=== PATIENT | male | born 1955 | race Caucasian/White ===

== ENCOUNTER 2019-08-15 05:49 | Day surgery (SDC) | payer BC, SELFPAY ==
[2019-07-18 10:13] VITALS: BMI 26.6
--- NOTE | 2019-08-14 23:25 | HP.PCM_ITS ---
History and Physical Date of Admission: 08/15/19 HISTORY OF PRESENT ILLNESS 64 year old man presents with an enlarging soft tissue mass nasal glabella near the left medial canthal area that has increased in size over the last several months. He denies any trauma. He denies any recent infection. He denies any visual problems. He also has questions about a vascular hemangioma on his left abdominal wall. He states it has not increased in size recently. He denies bleeding. He denies ulceration. He denies infection. He presents at this time for further evaluation and treatment. PAST MEDICAL HISTORY Negative. PAST SURGICAL HISTORY None. ALLERGIES No Known Allergies MEDICATIONS NK FAMILY HISTORY Unknown - No problems noted. SOCIAL HISTORY Smoking Status: Current every day smoker alcohol intake: current substance use type: does not use REVIEW OF SYSTEMS General - Denies fever, fatigue, and weight loss. Eyes - Denies cataracts and glaucoma. Denies visual problems. ENT - Denies nasal congestion and sore throat. Endocrine - Denies excessive thirst and urination. Skin - Denies skin cancer. Has an enlarging soft tissue mass nasal glabella near left medial canthal area. Has hemangioma left abdominal wall. Musculoskeletal - Denies joint pain, joint stiffness, weakness of muscles and joints, back pain, and arthritis. Neuro - Denies headaches. Cardiovascular - Denies chest pain, fatigue, and shortness of breath with exertion. Psych - Denies anxiety and depression. Respiratory - Denies chronic cough and shortness of breath. Patient is a smoker. Gastrointestinal - Denies nausea, vomiting, diarrhea, and constipation. Hematologic - Denies abnormal bruising and bleeding. Genitourinary - Denies hematuria and urinary frequency. PHYSICAL EXAMINATION General - Alert and Oriented. HEENT - PERRL. EOMI. Throat is clear. On the nasal glabella near the left medial canthal area is a soft tissue mass that measures 2 cm. It is mobile. Some adherence to the overlying skin is noted. No ulceration. Lesion is nontender. No evidence of infection. Neck - Supple and nontender. No cervical adenopathy. No suspicious lesions noted. Lungs - Clear to auscultation. Heart - Regular rate and rhythm. Abdomen - Soft and nondistended. On the left abdominal wall is a vascular hemangioma. It is raised in configuration. Measures 11 mm. No evidence of infection. No bleeding noted. No ulceration. Lesion is nontender. Extremities - FROM. No axillary adenopathy. Radial pulses are palpable. No suspicious lesions noted. Neuro - CN II-XII grossly intact. Psych - Normal mood and affect. ASSESSMENT 1. 2 cm soft tissue mass nasal glabella near left medial canthal area. 2. 11 mm hemangioma left abdominal wall. 3. Smoker. PLAN Recommend excision of this soft tissue mass nasal glabella near left medial canthal area and send it to Pathology for analysis to rule out carcinoma. Depending on how much skin needs to be removed will determine if a skin graft or skin flap is necessary for reconstruction. With adherence of the mass to the skin, if it is not removed and some of the mass persists, then it increases the risk of recurrence. The hemangioma is stable at present. Will observe at this time. If bleeding occurs, or increase in pain, or infection develops, or ulceration develops then would need excision at that time. Surgery will be done under local anesthesia and IV sedation on an outpatient basis. Patient was informed of the risks and complications of the procedure including alternatives to surgery. These were discussed with the patient personally. Patient voices understanding and wishes to proceed. Some of the risks and complications were included in a form from the [employer]. Encouraged patient to stop smoking as it may have deleterious effects on wound healing.
[2019-08-15 06:13] VITALS: BP 188/101; PULSE 61; RESP 15; TEMP 36.4; O2SAT 100; BMI 28.6
[2019-08-15] MEDS: Lactated Ringers 1,000 ML 100 ML IV (06:25)
--- NOTE | 2019-08-15 07:30 | MASS_PTH ---
PATIENT: RAMÓN ORTIZ [place] [facility] [place][id number] AGE/SX: 64/M ROOM: RE08/15/[address]: Dr. Maciej Driver MD : [id number] BED: DIS: 08/15/2019 SPEC #: [id number] RECD: 08/15/19 12:35 STATUS: JALEN REQ #: [id number] AUTUMN: 08/15/19 07:[address]: Maciej Driver DEPT: SURGICAL PATHOLOGY RECD BY: Erick Pineda ENTERED: 08/15/19 13:44 SP TYPE: Mass OTHR DR: Dr. Wilfrid French MD Tissues: Nose, NOS Procedures: Surgery Specimen Level III HEADER OPERATION: Excision soft tissue mass nasal glabella by medial canthal area PRE-OP DIAGNOSIS: 2 cm soft tissue mass nasal glabella near left medial canthal area TISSUE SUBMITTED: Soft tissue mass nasal glabella by medial canthal area MICROSCOPIC DIAGNOSIS Soft tissue mass nasal glabella by medial canthal area, excision: Mature adipose tissue consistent with lipoma. CONSTANTINO:wei 08/16/19 MICROSCOPIC DESCRIPTION Slides are reviewed. GROSS DESCRIPTION Received in fixative is one container labeled with the patient's name and designated soft tissue mass nasal glabella by medial canthal area. The specimen consists of a piece of adipose tissue measuring 2 x 1.5 x 0.7 cm. A piece of skin is noted at one edge measuring 1 x 0.2 cm. Sections reveal yellow adipose cut surfaces without areas of hemorrhage, necrosis or cystic degeneration. The entire specimen is submitted in two cassettes. / CONSTANTINO:wei 08/15/19 TC:1 CPT: 66368
[2019-08-15] MEDS: Mupirocin Ointment 22gm Tube 1 APPLIC (08:45)
--- NOTE | 2019-08-15 08:49 | PCM.OPRPT ---
Report of Operation Date of Procedure: 08/15/19 Pre-Operative Diagnosis: 1. 2 cm soft tissue mass nasal glabella near left medial canthal area. 2. Smoker. Post-Operative Diagnosis: 1. 2 cm submuscular soft tissue mass nasal glabella near left medial canthal area. 2. Smoker. Surgery/Procedure Performed:: Excision 2 cm submuscular soft tissue mass nasal glabella near left medial canthal area with nasal transposition skin flap reconstruction (4 cm2). Description of Surgical Findings:: 64 year old man presents with an enlarging soft tissue mass nasal glabella near the left medial canthal area that has increased in size over the last several months. He denies any trauma. He denies any recent infection. He denies any visual problems. He denies bleeding. He denies ulceration. Patient was informed of the risks and complications of the procedure including alternatives to surgery. These were discussed with the patient personally. Patient voices understanding and wishes to proceed. Some of the risks and complications were included in a form from the [place] [employer]. Encouraged patient to stop smoking as it may have deleterious effects on wound healing. I used Nahum absorbable hemostat. Reference Number - [id number]. Lot Number - [id number]. Expiration - May 19, 2024. petrology teacher: None Type of Anesthesia:: Local MAC - xylocaine with epinephrine and IV sedation. Specimen's removed: Submuscular soft tissue mass nasal glabella near left medial canthal area to Pathology. Drains: None. Estimated Blood Loss (mL): 10 ml. Description of Procedure: Patient was taken to OR in supine position and was given IV sedation. The face was prepped and draped in the usual fashion. SCD's were placed for DVT prophylaxis. Perioperative antibiotics were given intravenously. The soft tissue mass nasal glabella near left medial canthal area was infiltrated with xylocaine and epinephrine. After waiting 5 minutes for the anesthetic to take effect, I made an elliptical oblique incision over the mass and dissected down into the subcutaneous tissue. The soft tissue mass looked like a benign lipoma and was sharply dissected deep to the muscle and was adherent to the underlying nasal bone. The nasal bone appeared smooth with no evidence of extension of the mass through the bone. The soft tissue mass was then sent to Pathology for analysis to rule out carcinoma. The wound was irrigated with saline. Hemostasis was obtained with electrocautery. I tried to close the incision, and it appeared to put too much tension on the medial canthal skin that may lead to webbing. With the exposed bone I don't want to skin graft the wound. So I decided to proceed with bringing in tissue to minimize a scar contracture and, by bringing in tissue from a flap, it would decrease the risk of a seroma. Risk of seroma would also be decreased by my spraying Nahum absorbable hemostat into the wound. I designed a nasal flap adjacent to the defect and incisions were made as I dissected the nasal flap down to the nasal bones and elevated the flap in a submuscular fashion at the level of the nasal bones. The flap was transposed into the defect with minimal tension and minima distortion. Hemostasis was obtained with electrocautery. I sprayed Nahum absorbable hemostat into the wound to minimize seroma formation. After transposing the flap into the defect, I closed the wound in a layered fashion with 5-0 Monocryl interrupted sutures for the deep dermis and subcutaneous tissue. The skin was approximated with 6-0 Prolene simple interrupted sutures. Steri-strips were applied to the incision followed by antibiotic ointment. Patient tolerated the procedure well and was sent to PACU in satisfactory condition. Patient will be sent home on antibiotics and pain medication. He will keep his head elevated during the initial postoperative period. Patient will followup in a week for a wound check and for discussion of the pathology report and for removal of the sutures. Grafts/Implants Used: None. - Complications None. - Admit VTE Documentation VTE Present on Admission: No VTE Mechan Device Prophylaxis: SCD's VTE Pharm Prophylaxis ordered?: No Code Visit Surgery Charges CPT - 26684 ICD-10 - R22.0, D17.0, F17.200 40075 R22.0, D17.0, F17.200
[2019-08-15 08:55] VITALS: BP 128/76; BP 188/101; PULSE 54; RESP 18; TEMP 36.2; O2SAT 100
--- NOTE | 2019-08-15 08:58 | DCINST_ITS ---
You will use the following diet at home:: No restrictions Discharge Activity: May not drive while taking narcotic pain medications., May Shower - in two days., - - keep head elevated. no heavy lifting. May shower in (days): 2 May resume sexual activity in: No Restrictions Ice area for (Minutes): 5 - as needed for periorbital swelling. Weight Bearing Status: Weight bearing as tolerated Lifting Restrictions: 10 lbs. Keep extremity elevated above heart level: - - elevate head. Call your doctor if your incision/area has: Continuous Slow Oozing, Sudden Increased Bleeding, Increased Pain/ Swelling, Increased Redness, Foul Smelling Discharge, Swelling at the incision site Call your doctor if you observe: Fever of 101 or Higher, Coldness, Increased Pain, Shortness of breath, Chest pain, Calf discomfort, Uncontrolled pain Suture Line Care: - - apply antibiotic ointment to suture line daily. Cleanse incision/area with: - - may get incision wet in the shower. Allergies/Adverse Reactions: Allergies No Known Allergies Allergy (Unverified 08/15/19 06:13) Medications to take at Discharge Clindamycin HCl [Cleocin] 300 mg PO TID #12 cap 08/15/19 Lactobacillus Acidophilus/Fos [Acidophilus Probiotic Tablet] 1 ea PO BID #10 tab 08/15/19 Oxycodone HCl/Acetaminophen [Percocet 5/325] 1 tab PO 4X/DAY PRN PRN 7 Days #30 tab 08/15/19 The following prescriptions were given: Lactobacillus Acidophilus/Fos [Acidophilus Probiotic Tablet] 1 ea PO BID #10 tab Prescription Printed Clindamycin HCl [Cleocin] 300 mg PO TID #12 cap Prescription Printed Oxycodone HCl/Acetaminophen [Percocet 5/325] 1 tab PO 4X/DAY PRN PRN 7 Days #30 tab PRN Reason: Pain Score 4-5/10 Prescription Printed Primary Care Physician: Wilfrid Frnech MD [Primary Care Provider] - Test Results: Test results from this visit will be discussed in further detail at your follow- up appointment, if applicable. Please Follow Up With: Maciej Driver MD When: one week. call [phone] for appt. Proposed Discharge Date: 08/15/19
[2019-08-15 09:00] VITALS: BP 124/83; BP 188/101; PULSE 54; RESP 18; O2SAT 99
[2019-08-15 09:05] VITALS: BP 125/88; BP 188/101; PULSE 52; RESP 18; O2SAT 99
[2019-08-15 09:10] VITALS: BP 126/92; BP 188/101; PULSE 46; RESP 16; TEMP 36.2; O2SAT 100
[2019-08-15 09:29] VITALS: BP 188/101
== END 2019-08-15 09:35 | disposition home or self-care (01) ==
LOC: SDC 05:52 → AC 05:52
PROVIDERS: Family Provider Family Medicine; PCP Family Medicine; Referring Provider Surgery; Visit Provider Surgery
PROC: (CPT 14060; principal; 2019-08-15 07:15)
DX: R22.0 Localized swelling, mass and lump, head (principal); D18.01 Hemangioma of skin and subcutaneous tissue; F17.200 Nicotine dependence, unspecified, uncomplicated
CPT/HCPCS: 14060; 21014; 88304; 88305; J7120; J2405

== ENCOUNTER 2020-02-19 09:07 | Emergency (ER) | payer BC, SELFPAY ==
[2019-08-29 15:55] VITALS: BMI 28.6
[2020-02-19 09:08] VITALS: BP 195/129; PULSE 104; RESP 18; TEMP 36.4; O2SAT 98; BMI 29.8
--- NOTE | 2020-02-19 09:25 | ED.DCSUM_ITS ---
History of Present Illness Chief Complaint: Nosebleed Informant: Patient Onset: Today Narrative: Patient presents the emergency department for the evaluation of right-sided epistaxis. 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 He states he suddenly had bleeding from the right naris. He is not on any blood thinners. He denies any nasal trauma. He reports that he does have a history of hypertension that is not treated. He cannot tell me what his pressures normally run. He denies prior history of epistaxis. Past Medical History - Allergies and Home Meds Allergies/Adverse Reactions: Allergies No Known Allergies Allergy (Verified 02/19/20 09:10) Primary Care Physician: Wilfrid French MD [Primary Care Provider] - 1 Week Smoking Status: Current every day smoker Review of Systems General: Denies: Chills, Fever, Sweats Eyes: Denies: Visual changes - bilaterally, Diplopia ENT: Denies: Rhinorrhea, Sore throat Cardiovascular: Denies: Chest pain, Palpitations Respiratory: Denies: Dyspnea, Cough, Dyspnea on exertion Gastrointestinal: Denies: Abdominal pain, Nausea, Vomiting, Diarrhea, Melena, Hematochezia Genitourinary: Denies: Dysuria, Hematuria, Frequency Musculoskeletal: Denies: Back pain, Extremity Pain Skin: Denies: Rash, Wounds Neurological: Denies: Headache, Weakness, Numbness Physical Exam Vital Signs/Narrative: Vital Signs Temp Pulse Resp BP Pulse Ox 02/19/20 09:08 97.6 F L 104 H 18 195/129 H 98 Inital Vital Signs reviewed: Yes General: Well nourished, Well developed, No Acute Distress Head: Normocephalic, Atraumatic Eyes: Perrl, EOMI ENT: Moist mucous membranes, No rhinorrhea, - - Nasal clamp which was placed in triage was removed. Large clot noted in the right naris. This was removed by the patient blowing. No active bleeding seen. No blood in the oropharynx. Do not see any lesions in the anterior plexus. Neck: Supple, Nontender Cardiovascular: Regular rate, Regular rhythm, No murmurs Respiratory: No distress, CTA bilaterally, Chest nontender Abdomen: Soft, Nontender, Nondistended, Normal bowel sounds Back: Nontender, Normal Inspection Extremities: Nontender, No edema Skin: Normal color, No rash Neurological: Alert, Oriented x3, Cranial nerves II-XII grossly intact, Normal Strength, Normal Sensation Psychological: Normal affect, Normal Mood Diagnostic/Tx/Re-eval - Medical Decision Making After the clots were removed by the patient blowing several sprays of Afrin were placed into the nose. He was observed. No further bleeding has occurred. We talked about if it reoccurs at home and home treatment and when to return to the emergency department. Annual blood pressure was 172/105. I spoke with his primary care physician. We reviewed prior blood pressure readings and at this time we would like to begin Norvasc. We will have him obtain a blood pressure cuff and record his blood pressures over the next 2 weeks and have him follow-up in the office. ED Disposition - Plan for ED Patient: Disposition: Home or Assisted Living Diagnosis: Epistaxis, Hypertension Instructions: ED Epistaxis Adult, ED Hypertension New Begin Treatment Prescriptions: Amlodipine [Norvasc] 5 mg PO DAILY #30 tab Transmission Status: Pending to [facility] Referrals: Wilfrid French MD [Primary Care Provider] - (in 2 weeks) Additional Instructions: Dr. French and I discussed your blood pressures reviewed your prior blood pressure readings. At this time we would like to begin a medication called Norvasc. It is recommended that you obtain a blood pressure cuff and take readings and record them at home. In approximately 2 weeks we asked that you schedule a visit at your PCP office to discuss your blood pressure readings and how you are doing with it.
[2020-02-19 09:50] VITALS: BP 170/105
[2020-02-19] MEDS: Oxymetazoline 0.05% 1 SPRAY SPRAY.BTL 2 SPRAY NASAL (09:57)
[2020-02-19 10:16] VITALS: BP 167/135; PULSE 55; RESP 18; O2SAT 97
== END 2020-02-19 10:18 | disposition home or self-care (01) ==
PROVIDERS: Emergency Provider Emergency Medicine; PCP Family Medicine
DX: R04.0 Epistaxis (principal); I10 Essential (primary) hypertension; Z79.899 Other long term (current) drug therapy; F17.200 Nicotine dependence, unspecified, uncomplicated
CPT/HCPCS: 99284

== ENCOUNTER 2020-02-20 06:14 | Emergency (ER) | payer BC, SELFPAY ==
[2020-02-19 09:08] VITALS: BMI 29.8
[2020-02-20 06:15] VITALS: BP 203/122; PULSE 84; RESP 16; TEMP 36.4; O2SAT 100; BMI 28.8
[2020-02-20 06:25] VITALS: BP 170/134; PULSE 69; RESP 16; O2SAT 98
--- NOTE | 2020-02-20 06:37 | ED.VIS.GEN ---
History of Present Illness Chief Complaint: Nosebleed Informant: Patient Narrative: Patient was seen in the emergency department yesterday for right-sided nosebleed. He was given Afrin nasal spray and it stopped on its own. 30 minutes ago this morning when he woke up he developed a right-sided nosebleed again. He had not had to treated at home with anything. He placed the clamp back on his nose and came back in for further evaluation. No history of frequent nosebleeds. Started on Norvasc but has not picked it up from the pharmacy for increased blood pressures. He has a history of hypertension. Denies any chronic bleeding tendencies. Current severity is mild. - Past Medical History (1) Facial mass Status: Chronic Comment: 2 cm soft tissue mass nasal glabella near left medial canthal area (2) Hemangioma Status: Chronic Comment: 11 mm hemangioma left abdominal wall (3) Lipoma of face Status: Chronic Comment: 2 cm submuscular lipoma nasal glabella near left medial canthal area (4) Smoker Status: Chronic Past Medical History - Allergies and Home Meds Allergies/Adverse Reactions: Allergies No Known Allergies Allergy (Verified 02/19/20 09:10) Primary Care Physician: Konrad Zaldivar MD [STAFF PHYSICIAN] - Prior records reviewed: Yes Past Medical History: - - See problem list Surgical History: - - Reviewed Smoking Status: Current every day smoker Alcohol: None Drugs: None Review of Systems General: Denies: Chills, Fever, Sweats Eyes: Denies: Visual changes - bilaterally, Diplopia ENT: Denies: Rhinorrhea, Sore throat Cardiovascular: Denies: Chest pain, Palpitations Respiratory: Denies: Dyspnea, Cough, Dyspnea on exertion Gastrointestinal: Denies: Abdominal pain, Nausea, Vomiting, Diarrhea, Melena, Hematochezia Genitourinary: Denies: Dysuria, Hematuria, Frequency Musculoskeletal: Denies: Back pain, Extremity Pain Skin: Denies: Rash, Wounds Neurological: Denies: Headache, Weakness, Numbness Physical Exam Vital Signs/Narrative: Vital Signs Temp Pulse Resp BP Pulse Ox 02/20/20 06:25 69 16 170/134 H 98 02/20/20 06:15 97.5 F L 84 16 203/122 H 100 General: Well nourished, Well developed, No Acute Distress Head: Normocephalic, Atraumatic Eyes: Perrl, EOMI ENT: Moist mucous membranes, No rhinorrhea, - - Mild right-sided anterior nosebleed. Neck: Supple, Nontender Cardiovascular: Regular rate, Regular rhythm, No murmurs Respiratory: No distress, CTA bilaterally, Chest nontender Abdomen: Soft, Nontender, Nondistended, Normal bowel sounds Back: Nontender, Normal Inspection Extremities: Nontender, No edema Skin: Normal color, No rash Neurological: Alert, Oriented x3, Cranial nerves II-XII grossly intact, Normal Strength, Normal Sensation Psychological: Normal affect, Normal Mood Diagnostic/Tx/Re-eval - Medical Decision Making Kleenex inserted in the nose and pressure held for 10 minutes. He continued to have mild bleeding. Afrin nasal spray was then used as well as a Kleenex and pressure which stopped the bleeding. He will follow-up as an outpatient. Instructed on how to place Kleenex in his nose ED Disposition - Plan for ED Patient: Diagnosis: Nosebleed Instructions: ED Epistaxis Adult Referrals: Konrad Zaldivar MD [STAFF PHYSICIAN] -
[2020-02-20] MEDS: Oxymetazoline 0.05% 1 SPRAY SPRAY.BTL 2 SPRAY NASAL (07:04)
[2020-02-20 07:19] VITALS: BP 177/108; PULSE 78; RESP 16; O2SAT 97
== END 2020-02-20 07:21 | disposition home or self-care (01) ==
PROVIDERS: Emergency Provider Emergency Medicine; PCP Family Medicine
DX: R04.0 Epistaxis (principal); I10 Essential (primary) hypertension; Z79.899 Other long term (current) drug therapy; F17.200 Nicotine dependence, unspecified, uncomplicated
CPT/HCPCS: 99281

== ENCOUNTER 2020-12-31 16:06 | Outpatient (RCR) | payer BC, SELFPAY ==
[2020-12-31] MEDS: COVID-19 VACC, MRNA(PFIZER)/PF 30 MCG/0.3 ML SYRINGE IM (17:29)
[2021-01-21] MEDS: COVID-19 VACC, MRNA(PFIZER)/PF 30 MCG/0.3 ML SYRINGE IM (17:18)
== END 2021-03-30 23:59 ==
LOC: IMMUN 16:06
PROVIDERS: PCP Family Medicine; Visit Provider Family Medicine
DX: Z23 Encounter for immunization (principal)
CPT/HCPCS: 0001A; 0002A; 91300

== ENCOUNTER 2021-07-25 06:31 | Emergency (ER) | payer BC, SELFPAY ==
[2021-07-25] VITALS (9 sets, daily range): BP systolic 132–213; BP diastolic 93–130; PULSE 68–110; RESP 14–18; TEMP 36.1–36.2; O2SAT 97–100; BMI 29.8
--- NOTE | 2021-07-25 07:07 | EDS_ITS ---
HPI HPI - Psych History of Present Illness Chief Complaint: Overdose Informant: patient and friend Onset/Context/Timing Onset: Today and Yesterday Context: Gradual Onset Timing: Continuous Current Severity: Moderate Maximum Severity: Moderate Associated Symptoms Associated Symptoms - Psych: Positive for Depressed, Change in sleeping, Decreased Interest, Guilt and Suicidal Thoughts; Negative for Visual Hallucinations and Auditory Hallucinations Specific plan (suicidal thought): overdose Narrative Narrative: 66-year-old male history of hypertension. recently from complications of stage IV lung cancer with metastases. He is blaming himself for her passing. He states has been more depressed. She just passed 3 days ago on . He has been so depressed that he began taking handfuls of antibiotics and pain medication at home yesterday and attempt to overdose. He states I did not want to wake up. Today he realized when he was going to take other medications that he did not think he was going to be able to kill himself reached out the family who brought him into the emergency department. Patient has no prior psychiatric history and some depression. He does not see a counselor. He is on no psychiatric medications. And he tells me he is never needed a type of psychiatric admission nor has he had any prior suicide attempts. Prior similar symptoms: No Recent Illness/Hospitalization: No [facility] Medical History (Updated 07/25/21 @ 07:40 by Huong Levine RN) Hypertension Home Medications amlodipine 5 mg PO DAILY #30 tab 02/19/20 [Rx Last Taken Unknown] Allergy/AdvReac Type Severity Reaction Status Date / Time No Known Allergies Allergy Verified 02/19/20 09:10 Family History Unknown No problems noted. Social History Smoking Status: Current every day smoker tobacco type: cigarettes alcohol intake: current substance use type: does not use additional social history: DOES USE ASPIRIN NEEDED DOES USE IBUPROFEN NEEDED ROS ROS ED ROS Narrative Denies recent illness. Review of Systems ROS Unobtainable: Denies due to encephalopathy Constitutional Constitutional ED: Denies chills or fever(s) Eyes Eyes: Denies change in vision ENT ENT ED: Denies ear pain or sore throat Cardiovascular Cardiovascular: Denies chest pain Respiratory/Chest Respiratory/Chest: Denies cough or dyspnea Gastrointestinal Gastrointestinal: Denies abdominal pain, diarrhea, nausea or vomiting Genitourinary Genitourinary ED: Denies dysuria Musculoskeletal Musculoskeletal: Denies myalgias Integumentary Denies rash Neurologic Neurologic: Denies headache(s) Psychiatric Psychiatric: Denies depression Endocrine Endocrinology: Denies polyuria Hematologic/Lymphatic Hematologic/Lymphatic: Denies easy bruising Allergic/Immunologic Allergic/Immunologic ED: Denies urticaria EXAM Physical Exam Narrative Exam Narrative: Six 6-year-old male no acute distress initial blood pressure is elevated 213/130. That will be rechecked. H EENT exam unremarkable. Neck nontender. No signs of trauma. Lungs clear to auscultation. Heart regular rhythm no murmur. Abdomen soft nontender normal bowel sounds no peritoneal signs. He is moving all 4 extremities. There is no edema. Neurologically is awake alert no focal motor deficits. Emotionally he is upset he is tearful. He blames himself for the loss of his . Const Vital Signs: 07/25/21 06:31 07/25/21 07:39 Temperature 96.9 F L Temperature Source Temporal Pulse Rate 110 H Respiratory Rate 18 14 Blood Pressure 213/130 H Blood Pressure Mean 157 Pulse Ox 100 Oxygen Delivery Method Room Air Positive well nourished and well developed; Negative for obese, cachectic, contractures or unkempt General Appearance ED: well developed and NAD; Negative for unkempt, cachectic, contractures or pallor Nutritional Appearance: Negative for cachectic or obese HEENT Reports moist mucous membranes normocephalic and atraumatic; Negative for trauma or tenderness Eyes PERRL and EOMs intact bilaterally Neck no lymphadenopathy, supple and no JVD General: Negative for tenderness Resp normal respiratory effort and clear to auscultation bilaterally Auscultation: Negative for rales, rhonchi or wheezes Cardio S1 normal heart sound, S2 normal heart sound and no murmurs Rate: regular rate Rhythm: regular rhythm GI non-tender, non-distended and no masses Inspection: Negative for abdominal distention Auscultation: normoactive bowel sounds Palpation: soft; Negative for tender or guarding Back/Spine no CVA tenderness Extremity normal to inspection General Extremety ED: Negative for edema or tenderness General Extremity: Negative for edema Neuro oriented x3 Sensorium / Orientation: alert, oriented to person, oriented to place and oriented to time; Negative for orientation impaired, confused, lethargic or stuporous Motor Exam: strength 5/5 throughout Psych thought process normal, cooperative, affect normal, speech normal, activity/motor behavior normal, denies hallucinations and denies homicidal ideation; Negative for mental status grossly normal or denies suicidal ideation Appearance: Negative for unkempt Speech: normal speech Mood & Affect: depressed Skin General Skin Exam: Negative for jaundice or pallor Lesions: no lesions Rashes: no rashes MDM MDM MDM Narrative Medical decision making narrative: Patient is very depressed and suicidal due to the recent loss of his in the last several days. He tried to overdose on pain medication at home. He will be ED mental health evaluation and screening labs have been sent. He is medically cleared by myself. He will be a crisis evaluation at this time very likely will need transfer for placement. Repeat exam patient is doing well at 7:52 AM. He will be turned over to the morning physician. Patient is awaiting the rest of his labs. Crisis evaluation for determination of psychiatric placement. Lab Data Attestation: I reviewed the patient's lab results. Lab results narrative: CBC shows a white count of 7. Hemoglobin 15. Other labs currently have not returned. Labs: Laboratory Results - last 24 hr 07/25/21 07/25/21 07:15 07:24 WBC 7.6 RBC 5.18 Hgb 15.5 Hct 47.6 MCV 91.9 MCH 29.9 MCHC 32.6 RDW Std Deviation 45.4 H RDW Coeff of Nico 13.4 Plt Count 170 MPV 12.7 H Immature Gran % (Auto) 0.400 Neut % (Auto) 76.2 H Lymph % (Auto) 13.9 L [place] % (Auto) 7.9 Eos % (Auto) 0.9 Baso % (Auto) 0.7 Absolute Neuts (auto) 5.8 Absolute Lymphs (auto) 1.05 Nucleated RBC % 0 Ur Drug Screen Comment Discharge Plan Triage Chief Complaint: Overdose ED Provider: Alonzo Pete Dx/Rx/DC Orders Clinical Impression: Depression, Depression with suicidal ideation, Suicide attempt by drug overdose, Hypertension Prescriptions: No Action amlodipine 5 MG tablet 5 mg PO DAILY Qty: 30 RF: 0 Primary Care Provider: Wilfrid French Referrals: Wilfrid French MD [Primary Care Provider] - Disposition Disposition: Psychiatric Hospital or Unit
[2021-07-25 07:35] LABS: Absolute Lymphocyte Count 1.05 X10^3/uL (0.83-4.51); Absolute Neutrophil Count 5.8 X10^3/uL (2.0-7.7); Basophil# 0.05 X10^3/uL; Basophil% 0.7 % (0-1); Eosinophil# 0.07 X10^3/uL; Eosinophils% 0.9 % (0-5); Hematocrit 47.6 % (40-54); Hemoglobin 15.5 g/dL (13.0-16.5); Lymphocyte # 1.05 X10^3/ul (0.83-4.51); Lymphocyte % 13.9 % (19-41); Mean Corp Hgb Conc 32.6 g/dL (32-36); Mean Corpuscular Hgb 29.9 pg (27.0-32.0); Mean Corpuscular Volume 91.9 fL (80-94); Mean Platelet Vol. 12.7 fl (6.2-12.0); Monocyte% 7.9 % (0-10); NRBC Flagged by Analyzer 0 % (0-5); Neutrophil # 5.75 X10^3/uL (2.7-7.7); Neutrophil % 76.2 % (47-70); POSITIVE MORPHOLOGY YES; Platelet Count 170 K/mm3 (150-450); RBC Distribution Width CV 13.4 % (11.6-14.6); RBC Distribution Width SD 45.4 fl (35.1-43.9); Red Blood Count 5.18 M/mm3 (4.6-6.2); White Blood Count 7.6 K/mm3 (4.4-11.0)
[2021-07-25 07:45] LABS: Differential Indicated SCAN CRITERIA MET
[2021-07-25 07:53] LABS: Amphetamine Urine VISTA NEGATIVE (<1000 ng/mL); Barbiturate Urine VISTA NEGATIVE (< 200 ng/mL); Benzodiazepine Urine VISTA NEGATIVE (< 200 ng/mL); Cocaine Urine VISTA NEGATIVE (< 300 ng/mL); Ecstacy Urine VISTA NEGATIVE (< 500 ng/mL); Methadone Urine VISTA NEGATIVE (< 300 ng/mL); PCP Urine VISTA NEGATIVE (< 25 ng/mL); THC Urine VISTA NEGATIVE (< 50 ng/mL); Vista UDS pH Range 6
[2021-07-25 07:55] LABS: Anion Gap 7 (5-15); BUN 13 mg/dL (7-18); BUN/Creat Ratio 12.3 RATIO (10-20); Calcium,Total 9.5 mg/dL (8.5-10.1); Chloride 110 mmol/L (98-107); Creatinine, Serum 1.06 mg/dL (0.70-1.30); EST Glomerular Filtration Rate 74 mL/min (>60); Est Glom Filt Rate - Afr Amer 90 mL/min (>60); Estimated Creatinine Clearance 76.26 ml/min; Glucose 126 mg/dL (74-106); Potassium 3.5 mmol/L (3.5-5.1); Sodium Level 140 mmol/L (136-145)
[2021-07-25 08:01] LABS: Alcohol, Blood (Medical)-Serum < 3.0 mg/dL
[2021-07-25 08:59] LABS: Differential Comment SCANNED
[2021-07-25] MEDS: amLODIPine 10 MG Tablet PO (09:46)
--- NOTE | 2021-07-25 09:55 | ED.RN ---
PT STATES HE WANTS DAUGHTER SHELLY SMITH TO BE GIVEN ANY INFORMATION. PHONE NUMBER [phone]
[2021-07-25] MEDS: Metoprolol Tartrate 25 MG Tablet PO (21:18)
== END 2021-07-25 23:28 ==
PROVIDERS: Emergency Provider Emergency Medicine; PCP Family Medicine
DX: F32.A Depression, unspecified (principal); T36.92XA Poisoning by unspecified systemic antibiotic, intentional self-harm, initial encounter; T50.902A Poisoning by unspecified drugs, medicaments and biological substances, intentional self-harm, initial encounter; Y92.9 Unspecified place or not applicable; Z63.4 Disappearance and death of family member; R45.851 Suicidal ideations; I10 Essential (primary) hypertension; F17.210 Nicotine dependence, cigarettes, uncomplicated
CPT/HCPCS: 80048; 80307; 82077; 85025; 87426; 99285

== ENCOUNTER → 2023-05-15 | Outpatient (CLI) | payer BC, SELFPAY ==
[2023-05-15 16:44] LABS: Absolute Lymphocyte Count 1.49 X10^3/uL (0.83-4.51); Absolute Neutrophil Count 5.2 X10^3/uL (2.0-7.7); Basophil# 0.08 X10^3/uL; Eosinophil# 0.14 X10^3/uL; Eosinophils% 1.8 % (0-5); Hematocrit 45.8 % (40-54); Hemoglobin 14.5 g/dL (13.0-16.5); Lymphocyte # 1.49 X10^3/ul (0.83-4.51); Lymphocyte % 19.3 % (19-41); Mean Corp Hgb Conc 31.7 g/dL (32-36); Mean Corpuscular Hgb 29.7 pg (27.0-32.0); Mean Corpuscular Volume 93.7 fL (80-94); Mean Platelet Vol. 13.2 fl (6.2-12.0); Monocyte% 10.3 % (0-10); NRBC Flagged by Analyzer 0 % (0-5); Neutrophil # 5.19 X10^3/uL (2.7-7.7); Neutrophil % 67.1 % (47-70); Platelet Count 168 K/mm3 (150-450); RBC Distribution Width CV 14.6 % (11.6-14.6); RBC Distribution Width SD 50.5 fl (35.1-43.9); Red Blood Count 4.89 M/mm3 (4.6-6.2); White Blood Count 7.7 K/mm3 (4.4-11.0)
[2023-05-15 17:17] LABS: ALB/GLOB Ratio 1.1 RATIO (0.9-2.4); AST(SGOT) 15 U/L (15-37); Alanine Aminotransfer ALT/SGPT 22 U/L (16-61); Albumin, Serum 3.5 g/dL (3.2-5.0); Alkaline Phosphatase 55 U/L (45-117); Anion Gap 5 (5-15); BUN 20 mg/dL (7-18); BUN/Creat Ratio 12.8 RATIO (10-20); Calcium,Total 9.2 mg/dL (8.5-10.1); Chloride 110 mmol/L (98-107); Cholesterol 176 mg/dL (200); Creatinine, Serum 1.56 mg/dL (0.70-1.30); EST Glomerular Filtration Rate 47 mL/min (>60); Est Glom Filt Rate - Afr Amer 57 mL/min (>60); Globulin 3.3 g/dL (2.2-4.2); Glucose 92 mg/dL (74-106); High Density Lipoprotein 51 mg/dL; PSA,Total- Diagnostic 1.41 ng/mL (0.0-4.0); Potassium 4.2 mmol/L (3.5-5.1); Protein, Total 6.8 g/dL (6.4-8.2); Sodium Level 139 mmol/L (136-145); Triglycerides 104 mg/dL; Very Low Density Lipoprotein 21 mg/dL (5-40)
== END | disposition home or self-care (01) ==
LOC: LAB 15:44
PROVIDERS: PCP Nurse Practitioner Family; Visit Provider Nurse Practitioner Family
DX: Z00.01 Encounter for general adult medical examination with abnormal findings (principal); I10 Essential (primary) hypertension
CPT/HCPCS: 36415; 80053; 80061; 84153; 85025

== ENCOUNTER 2024-03-15 19:29 | Inpatient (IN) | payer BC, MEDICARE, SELFPAY ==
[2024-03-15] VITALS (8 sets, daily range): BP systolic 139–199; BP diastolic 122–139; PULSE 52–136; RESP 13–18; TEMP 36.1–37.1; O2SAT 97–100; BMI 24.9; BMI 27.2; BMI 28.0
--- NOTE | 2024-03-15 19:30 | EKG12_ITS ---
Test Reason : STROKE Blood Pressure : / mmHG Vent. Rate : 149 BPM Atrial Rate : 000 BPM P-R Int : 000 ms QRS Dur : 078 ms QT Int : 320 ms P-R-T Axes : 000 025 091 degrees QTc Int : 504 ms Critical Test Result: High HR Atrial fibrillation with rapid ventricular response Nonspecific T wave abnormality Abnormal ECG Confirmed by Octaviano Lance ([id number]), technical editor LORENA DIAZ ([id number]) on 03/18/2024 8:04:59 AM Referred By: Confirmed By:Octaviano Lance
--- NOTE | 2024-03-15 19:30 | CT_ITS ---
INDICATION: Neuro deficit, acute, stroke suspected EXAMINATION: CT BRAIN - CT Head Stroke Protocol W/O Contrast Injection TECHNIQUE: Multiple axial images were obtained of the head without intravenous contrast. The protocol utilizes one or more of the following dose reduction techniques: automated exposure control, adjustment of mA and/or kV according to patient size,and/or use of iterative reconstruction technique. IV Contrast dosage and agent: None. COMPARISON: No relevant prior comparison study available FINDINGS: BRAIN PARENCHYMA: No intra- or extra-axial hemorrhage. No evidence of acute infarct. No intracranial mass or mass effect. There is preservation of the hunt/white matter interface. Posterior fossa structures are unremarkable. CSF SPACES: Appropriate for age. No hydrocephalus. Basal cisterns are patent. CALVARIUM, SKULL BASE, PARANASAL SINUSES AND MASTOID AIR CELLS: Clear. No discrete lytic or blastic abnormalities. ORBITS: Both globes, extraocular muscles, optic nerves and retrobulbar fat appear unremarkable. ASPECTS Score for Acute Strokes: 10 CT/STROKE Brain/Head without Cont IMPRESSION: Negative Brain CT without contrast. N.B. : The above Results were Read Back by Basim Pina MD to Mark Zhang MD, and understanding confirmed on 03/15/2024 19:47:56 (ET). Electronically Signed: Basim Pina MD at 19:47 EDT ,
--- NOTE | 2024-03-15 19:30 | CT_ITS ---
STUDY: CTA HEAD AND NECK WITH CONTRAST REASON FOR EXAM: Male, 69 years old. Neuro deficit, acute, stroke suspected RADIATION DOSAGE (If Supplied By Facility): CTDIvol = ( 26.89 ) mGy, DLP = ( 1001.73 ) mGycm TECHNIQUE: CT angiography was performed with a multi-detector CT scanner. Data acquisition was obtained from the skull base through the vertex following intravenous administration of IV 100mL Isovue-300. MIP images were reconstructed from the axial data set. Post-processing of the angiographic images was performed, with multiplanar reformation and 3D reconstruction. Individualized dose optimization techniques were used for this CT. COMPARISON: No relevant priors. FINDINGS: Normal bilateral petrous carotid arteries. There is calcified plaque formation of the right cavernous carotid artery, with a mild stenosis (less than 50%). There is calcified plaque formation of the left cavernous carotid artery, with a mild stenosis (less than 50%). Normal right A1 segments of the anterior cerebral artery. Normal left A1 segments of the anterior cerebral artery. Normal intact anterior communicating artery (ACOM). Normal bilateral A2 segments of the anterior cerebral arteries. Normal right M1 and M2 segments of the middle cerebral arteries, with a normal M1 bifurcation. Normal left M1 and M2 segments of the middle cerebral arteries, with a normal M1 bifurcation. Normal right posterior communicating artery (PCOM). Normal left posterior communicating artery (PCOM). Normal bilateral vertebral arteries. Normal basilar artery with a normal basilar bifurcation. The visualized bilateral superior cerebellar (SCA) arteries are normal. Normal bilateral P1, P2 and visualized P3 segments of the posterior cerebral arteries. There is no demonstrated aneurysm of the [place]. There is no demonstrated abnormality of the visualized brain. AORTIC ARCH: There is atherosclerotic calcific plaque formation of the aortic arch and great vessels arising from the aortic arch, without a hemodynamically significant stenosis. There is a normal origin of the brachiocephalic, left common carotid, and left subclavian arteries. RIGHT CAROTID ARTERIES: Normal right common carotid artery (CCA). There is moderate atherosclerotic plaque formation with moderate narrowing of the right carotid bulb. There is moderate atherosclerotic plaque formation of the origin of the right internal carotid artery with an estimated stenosis of 50-69% stenosis. Normal visualized cervical portion of the right internal carotid artery. Normal origin of the right external carotid artery (ECA). LEFT CAROTID ARTERIES: Normal left common carotid artery (CCA). There is extensive atherosclerotic plaque formation with moderate narrowing of the carotid bulb with a hemodynamically significant stenosis. There is severe atherosclerotic plaque formation of the origin of the left internal carotid artery with an estimated stenosis of 50-69% stenosis. Normal visualized cervical portion of the left internal carotid artery. Normal origin of the left external carotid artery (ECA). VERTEBRAL ARTERIES: Normal bilateral vertebral arteries. CT/STROKE CTA Head AND Neck W/Con IMPRESSION: No definite acute large vessel occlusion. Prominent calcified atherosclerosis of both cavernous carotid arteries. Prominent calcified atherosclerosis of both carotid bulbs and proximal ICAs with as much as 50-69% stenosis of both ICA origins. N.B. : The above Results were Read Back by Basim Pina MD to Mark Zhang MD, and understanding confirmed on 03/15/2024 20:07:11 (ET). Electronically Signed: Basim Pina MD at 20:10 EDT ,
--- NOTE | 2024-03-15 19:39 | ED.RN ---
PT TOLD TRIAGE SX STARTED AT 1500, PT TOLD DR. MONTE SX STARTED AT 1600.
[2024-03-15 19:49] LABS: Bedside Glucose 120 mg/dL (74-106)
[2024-03-15 19:57] LABS: Absolute Neutrophil Count 6.5 X10^3/uL (2.0-7.7); Basophil# 0.09 X10^3/uL; Eosinophils% 2.1 % (0-5); Hematocrit 50.1 % (40-54); Hemoglobin 15.7 g/dL (13.0-16.5); Mean Corp Hgb Conc 31.3 g/dL (32-36); Mean Corpuscular Hgb 29.2 pg (27.0-32.0); Mean Corpuscular Volume 93.3 fL (80-94); Mean Platelet Vol. 13.5 fl (6.2-12.0); Monocyte# 0.94 X10^3/uL; NRBC Flagged by Analyzer 0 % (0-5); Neutrophil # 6.52 X10^3/uL (2.7-7.7); Neutrophil % 69.5 % (47-70); Platelet Count 166 K/mm3 (150-450); RBC Distribution Width CV 14.7 % (11.6-14.6); RBC Distribution Width SD 50.3 fl (35.1-43.9); Red Blood Count 5.37 M/mm3 (4.6-6.2); White Blood Count 9.4 K/mm3 (4.4-11.0)
[2024-03-15 19:59] LABS: International Normalized Ratio 1.1; Partial Thromboplast Time 27.3 Seconds (24.1-36.2); Prothrombin Time (Protime)PT. 14.3 SECONDS (11.7-14.9)
[2024-03-15] MEDS: dilTIAZem 25 MG/5 ML Vial 10 MG IV BOLUS (20:03)
[2024-03-15 20:08] LABS: Anion Gap 9 (5-15); BUN 23 mg/dL (7-18); BUN/Creat Ratio 18.9 RATIO (10-20); Calcium,Total 9.6 mg/dL (8.5-10.1); Chloride 109 mmol/L (98-107); Creatinine, Serum 1.22 mg/dL (0.70-1.30); EST Glomerular Filtration Rate 63 mL/min (>60); Est Glom Filt Rate - Afr Amer 76 mL/min (>60); Estimated Creatinine Clearance 63.61 ml/min; Glucose 121 mg/dL (74-106); Potassium 4.3 mmol/L (3.5-5.1); Sodium Level 138 mmol/L (136-145); Troponin-I HS 41 pg/mL (3.0-78.0)
--- NOTE | 2024-03-15 20:12 | RAD_ITS ---
STUDY: X-RAY CHEST REASON FOR EXAM: Male, 69 years old. Neuro deficit, acute, stroke suspected TECHNIQUE: Single AP portable view of the chest. COMPARISON: None. FINDINGS: The lungs are hyperexpanded. There are coarsened interstitial markings suggestive of mild chronic fibrosis. No gross focal infiltrates. No gross effusions. Normal size heart. Normal mediastinum and amada. Normal visualized pulmonary arteries. Normal visualized aortic arch and descending thoracic aorta. Normal visualized thoracic spine. Normal visualized ribs, clavicles, and shoulders. There is no demonstrated abnormality of the visualized soft tissue structures of the upper abdomen. RAD/Chest 1 View IMPRESSION: There are findings consistent with COPD. There is no evidence of acute chest disease. Electronically Signed: Basim Pina MD at 21:07 EDT ,
--- NOTE | 2024-03-15 20:15 | EDS_ITS ---
HPI History of Present Illness Chief Complaint: Stroke Alert Detail of Chief Complaint: Stroke onset is unknown please see HPI narrative Informant: patient Onset/Context/Timing Onset: Today (Informed triage nurse 3 PM informed me 4 PM. When speaking with the [facility] neurologist he gave 3 PM and 4 PM.) Context: - (Unknown) Timing: Continuous (Presumed) Quality and Location: Positive for Expressive Aphasia Current Severity: Significant Maximum Severity: Significant Worsened by: Nothing Relieved by: Nothing Associated Symptoms Associated Symptoms: Positive for - (Unable to determine since he has an expressive aphasia) Narrative Narrative: Patient is a 69-year-old male. He is never been here. History is limited because he has expressive aphasia. He initially told me onset was 4 PM. He told the triage nurse 3 PM. While he was talking to the [facility] neurologist who agrees he has a stroke he gave her both 3 PM and 4 PM. Since the time is unknown he is not a candidate for TNK. Patient drove himself to the emergency department. Triage nurse asked physician to see patient. He was seen. In light brief encounter with him was determined he is having a stroke. Stroke team was activated. CT of the head and CTA of the head neck was obtained specially since he is in A-fib with RVR and concern for embolic phenomenon. Unable to get history because of expressive aphasia PFSH PFS Medical History Hypertension Home Medications ?Medication ?Instructions ?Recorded ?Last Taken ?Type amlodipine 5 mg tablet 10 mg PO DAILY bp 07/25/21 Unknown History Allergy/AdvReac Type Severity Reaction Status Date / Time No Known Allergies Allergy Verified 03/15/24 19:36 Family History Unknown No problems noted. Social History Smoking Status: Current every day smoker tobacco type: cigarettes alcohol intake: current substance use type: does not use additional social history: DOES USE ASPIRIN NEEDED DOES USE IBUPROFEN NEEDED ROS ROS ED Review of Systems ROS Unobtainable: due to mental status EXAM Physical Exam Const Vital Signs: 03/15/24 19:29 03/15/24 19:35 03/15/24 19:49 Temperature 97 F L Temperature Source Temporal Pulse Rate 128 H 128 H Respiratory Rate 18 18 Blood Pressure 199/133 H 199/133 H Blood Pressure Mean 155 155 Pulse Ox 100 100 Oxygen Delivery Method Room Air Room Air Room Air 03/15/24 20:00 03/15/24 20:30 Temperature Temperature Source Pulse Rate 136 H 102 H Respiratory Rate 16 13 Blood Pressure 191/133 H 169/139 H Blood Pressure Mean 152 149 Pulse Ox 99 98 Oxygen Delivery Method Room Air Room Air Positive well nourished and well developed General Appearance ED: well developed and NAD HEENT Reports moist mucous membranes atraumatic Eyes PERRL and EOMs intact bilaterally Eyes Narrative: There is no nystagmus. There is no visual field cut. General Eye ED: Negative for pale conjunctiva or scleral icterus Neck no lymphadenopathy, supple and no JVD Chest Wall inspection of chest normal and palpation of chest normal Resp normal respiratory effort and clear to auscultation bilaterally Cardio no murmurs Rate: tachycardic Rhythm: abnormal rhythm irregularly irregular GI normal to inspection, nondistended, normoactive bowel sounds, soft to palpation, non-tender, non-distended and no masses Back/Spine no CVA tenderness Extremity normal to inspection General Extremety ED: Negative for deformity or edema General Extremity: Negative for deformity or edema Neuro CN's II-XII intact bilaterally and no sensory deficits noted Neuro Narrative: Orientation is not normal. [place] Coma Scale: document GCS findings Spontaneous Obeys Commands Confused 14 Sensorium / Orientation: alert Psych mental status grossly normal Skin no wounds NIHSS NIHSS Initial: 1a Level of Consciousness: 0 1b LOC Questions (Score 2 if aphasic/stupor): 2 1c LOC Commands (Only score 1st attempt): 0 2 Best Gaze (If aphasic, use reflexive mvmts.): 0 3 Visual: 0 4 Facial Palsy: 0 5 Motor Arm Right (UN = amputation/fusion): 0 5 Motor Arm Left: 0 6 Motor Leg Right: 0 6 Motor Leg Left: 0 7 Limb ataxia (Only + if out of proportion): 0 8 Sensory (Aphasia/stupor=0 or 1, coma=2): 0 9 Best Language: 2 10 Dysarthria (mute, coma=2, intubated=UN): 0 11 Extinction and Inattention (only scored if +): 0 Total Score: 4 MDM MDM MDM Narrative Medical decision making narrative: Stroke team was called from triage. Spoke with [facility] neurologist. Patient not a TNK candidate. Plan is for rate control of his A-fib. Anticoagulant not to be started for 3 days per [facility] neurologist. As previously stated patient is not a TNK candidate. Lab Data Attestation: I reviewed the patient's lab results. Lab results narrative: CBC is unremarkable. Electrolyte panel is unremarkable. CO2 is 20 with a normal anion gap. Troponin is normal at 41. Labs: Laboratory Results - last 24 hr 03/15/24 19:30 WBC 9.4 RBC 5.37 Hgb 15.7 Hct 50.1 MCV 93.3 MCH 29.2 MCHC 31.3 L RDW Std Deviation 50.3 H RDW Coeff of Nico 14.7 H Plt Count 166 MPV 13.5 H Immature Gran % (Auto) 0.400 Neut % (Auto) 69.5 Lymph % (Auto) 17.0 L [place] % (Auto) 10.0 Eos % (Auto) 2.1 Baso % (Auto) 1.0 Absolute Neuts (auto) 6.5 Absolute Lymphs (auto) 1.60 Nucleated RBC % 0 PT 14.3 INR 1.1 APTT 27.3 Sodium 138 Potassium 4.3 Chloride 109 H Carbon Dioxide 20.0 L Anion Gap 9 BUN 23 H Creatinine 1.22 Estim Creat Clear Calc 63.61 Est GFR (MDRD) Af Amer 76 Est GFR (MDRD) Non-Af 63 BUN/Creatinine Ratio 18.9 Glucose 121 H Hemoglobin A1c 5.1 Calcium 9.6 Troponin I High Sens 41 TSH 2.52 POC Glucose 120 H Radiography Diagnostic Testing: Clinical Impression(s) from Imaging Studies Head/Neck CTA 03/15/24 19:30 IMPRESSION: No definite acute large vessel occlusion. Prominent calcified atherosclerosis of both cavernous carotid arteries. Prominent calcified atherosclerosis of both carotid bulbs and proximal ICAs with as much as 50-69% stenosis of both ICA origins. N.B. : The above Results were Read Back by Basim Pina MD to Mark Zhang MD, and understanding confirmed on 03/15/2024 20:07:11 (ET). Electronically Signed: Basim Pina MD at 20:10 EDT , ADDENDUM: 03/15/242016 IMPRESSION: No definite acute large vessel occlusion. Prominent calcified atherosclerosis of both cavernous carotid arteries. Prominent calcified atherosclerosis of both carotid bulbs and proximal ICAs with as much as 50-69% stenosis of both ICA origins. N.B. : The above Results were Read Back by Basim Pina MD to Mark Zhang MD, and understanding confirmed on 03/15/2024 20:07:11 (ET). Electronically Signed: Basim Pina MD at 20:10 EDT , Chest X-Ray 03/15/24 20:12 IMPRESSION: There are findings consistent with COPD. There is no evidence of acute chest disease. Electronically Signed: Basim Pina MD at 21:07 EDT , EKG Initial EKG: Interpretation: Atrial Fibrillation (Rate is 149. QRS duration 70 ms. QT duration 3 and 20 ms. [place] is normal. There is nonspecific changes which is artifact and probably rate dependent.) Management Discussion w/another healthcare provider: Hospitalist (Spoke to Dr. Davis Villarreal. Plan is rate control his A-fib stroke workup no anticoagulation), Entrepreneurial Finance Professor (Spoke with [facility] neurologist and discussed specifically anticoagulation. She states not for 3 days.) and Radiologist (Spoke to radiologist. The CT of head without contrast and CTA of head and neck. Both were normal.) Treatment and Re-Evaluation Narrative: Plan is rate control of his A-fib. No anticoagulation. He is not a TNK candidate. Furthermore, since patient has had a stroke and not a TNK candidate allowing for permissive hypertension. Stroke Documentation Questions Stroke Team Activated: Yes Reviewed Inclusion/Exclusion criteria: Yes IV Thrombolytic Administered: No No contraindications from thrombolytic administration: No Risks, Benefits, Alternatives Discussed: No Critical Care Time Critical Care Time: Yes Critical care time (excluding procedures): 30-74 minutes (31), Including time spent: (History, physical, documentation, review of outside records.), Discussing w/Patient &/or Family/Cover Machine Operator, Discussing w/Consultants and Arranging Admission or Transfer Discharge Plan Dx/Rx/DC Orders Clinical Impression: Combined receptive and expressive aphasia due to acute cerebrovascular accident (CVA), Atrial fibrillation with RVR, Elevated blood pressure reading Disposition Disposition: Acute Care Hospital [facility] Discharge Date/Time: 03/15/24 21:00
--- NOTE | 2024-03-15 20:20 | PCM.HP.STD ---
[facility] - General General Date of Admission: 03/15/24 Date of Service: 03/15/24 Chief Complaint: Expressive Aphasia. HPI Narrative RAMÓN ORTIZ, is a 69 M with a past medical history of essential hypertension, tobacco abuse, overweight; BMI of 28 this admission, history of lipoma of face, history of hemangioma and osteoarthritis who presents to [facility] ER complaining of expressive aphasia. Mr. Ortiz is not exactly sure when his symptoms began but he suspects it was between 3 PM and 4 PM today with the abrupt onset of difficulty speaking. He states he does smoke every day but he denies alcohol or illicit drug use. He also states that he uses aspirin as needed but does not take it routinely. He denies associated fever, chills, nausea, vomiting, diarrhea, constipation, chest pain, shortness of breath, headache or similar previous episodes. I spoke with his friends and family at the bedside and they reported, and he confirmed, that he has made a habit of deliberately avoiding medical attention in the past so he does not know how long he has been in atrial fibrillation or how long his blood pressure has been uncontrolled. In the ER he was noted to have clinical signs of acute CVA; with the abrupt onset of expressive aphasia likely affecting Broca's area complicated by CTA of the head and neck positive for evidence of 50 to 69% stenosis of both ICA origins compounded by apparently new-onset atrial fibrillation; with rapid ventricular response at ~136 bpm present on admission and uncontrolled hypertension with blood pressure of 191/133 mmHg present on admission and he was then admitted to the PCU for ongoing care for stay that is expected to extend beyond 2 midnights. [facility] Medical History Hypertension Home Medications ?Medication ?Instructions ?Recorded ?Last Taken ?Type amlodipine 5 mg tablet 10 mg PO DAILY bp 07/25/21 Unknown History Allergy/AdvReac Type Severity Reaction Status Date / Time No Known Allergies Allergy Verified 03/15/24 19:36 Family History Unknown No problems noted. Social History Smoking Status: Current every day smoker tobacco type: cigarettes alcohol intake: current substance use type: does not use additional social history: DOES USE ASPIRIN NEEDED DOES USE IBUPROFEN NEEDED ROS ROS Narrative Review of systems: General: Patient denies fever or chills. HENT: Denies headache, denies stuffy nose, denies sore throat EYES: Denies changes in vision or discharge from eyes. Resp: Denies cough, denies shortness of breath Cardiac: Patient admits to palpitations and heart racing but denies chest pain. GI: Denies abdominal pain, denies changes in bowel, denies nausea or vomiting. : Denies changes in urination Extremity: Denies swelling Musculoskeletal: Feels somewhat generally weak and unwell but denies arthralgias or myalgias. Neuro: Patient admits to the abrupt onset of expressive aphasia but denies related headache or paresthesias. Heme: Denies any bleeding or bruising Skin: Denies rashes Psychiatric: No complaints voiced related to uncontrolled depression or anxiety. Endocrine: No polyuria, polydipsia or polyphagia. The rest of the 14 point ROS was negative except for positives in HPI. Vital Signs Vital Signs Vital Signs: 03/15/24 19:29 03/15/24 19:35 03/15/24 19:49 Temperature 97 F L Temperature Source Temporal Pulse Rate 128 H 128 H Respiratory Rate 18 18 Blood Pressure 199/133 H 199/133 H Blood Pressure Mean 155 155 Pulse Ox 100 100 Oxygen Delivery Method Room Air Room Air Room Air 03/15/24 20:00 Temperature Temperature Source Pulse Rate 136 H Respiratory Rate 16 Blood Pressure 191/133 H Blood Pressure Mean 152 Pulse Ox 99 Oxygen Delivery Method Room Air Weight Weight: 206 lb 12.697 oz Body Mass Index (BMI) 28.0 Physical Exam Const alert, oriented x3, no apparent distress and average body habitus General Appearance: cooperative HEENT normocephalic, head/scalp atraumatic, hearing grossly normal bilaterally and moist oral mucous membranes Eyes PERRL and EOMs intact bilaterally Neck no lymphadenopathy and supple Resp normal respiratory effort, no retractions, no use of accessory muscles and clear to auscultation bilaterally Cardio Cardio Narrative: Irregularly irregular at ~136 bpm. GI normal to inspection, nondistended, normoactive bowel sounds, soft to palpation, non-tender and non-distended Extremity normal to inspection, full ROM and no clubbing, cyanosis or edema Skin Skin Narrative: Patient has no evidence of jaundice or rash. Neuro oriented x3, CN's II-XII intact bilaterally and moves all extremities Neuro Narrative: Patient has significant expressive aphasia with significant difficulty finding the right words. Sensorium / Orientation: awake, alert, oriented to person, oriented to place and oriented to time Psych affect normal Results Medical Records Data Attestation: I reviewed the patient's medical records Lab / Micro Data Attestation: I reviewed the patient's lab results. 03/15/24 19:30 03/15/24 19:30 Labs: Laboratory Results - last 24 hr 03/15/24 19:30: WBC 9.4, RBC 5.37, Hgb 15.7, Hct 50.1, MCV 93.3, MCH 29.2, MCHC 31.3 L, RDW Std Deviation 50.3 H, RDW Coeff of Nico 14.7 H, Plt Count 166, MPV 13.5 H, Immature Gran % (Auto) 0.400, Neut % (Auto) 69.5, Lymph % (Auto) 17.0 L, Jenkins % (Auto) 10.0, Eos % (Auto) 2.1, Baso % (Auto) 1.0, Absolute Neuts (auto) 6.5, Absolute Lymphs (auto) 1.60, Nucleated RBC % 0, PT 14.3, INR 1.1, APTT 27.3, Sodium 138, Potassium 4.3, Chloride 109 H, Carbon Dioxide 20.0 L, Anion Gap 9, BUN 23 H, Creatinine 1.22, Estim Creat Clear Calc 63.61, Est GFR (MDRD) Af Amer 76, Est GFR (MDRD) Non-Af 63, BUN/Creatinine Ratio 18.9, Glucose 121 H, Calcium 9.6, Troponin I High Sens 41, POC Glucose 120 H Imaging Radiology Impression Head/Neck CTA 03/15/24 19:30 IMPRESSION: No definite acute large vessel occlusion. Prominent calcified atherosclerosis of both cavernous carotid arteries. Prominent calcified atherosclerosis of both carotid bulbs and proximal ICAs with as much as 50-69% stenosis of both ICA origins. N.B. : The above Results were Read Back by Basim Pina MD to Mark Zhang MD, and understanding confirmed on 03/15/2024 20:07:11 (ET). Electronically Signed: Basim Pina MD at 20:10 EDT , ADDENDUM: 03/15/242016 IMPRESSION: No definite acute large vessel occlusion. Prominent calcified atherosclerosis of both cavernous carotid arteries. Prominent calcified atherosclerosis of both carotid bulbs and proximal ICAs with as much as 50-69% stenosis of both ICA origins. N.B. : The above Results were Read Back by Basim Pina MD to Mark Zhang MD, and understanding confirmed on 03/15/2024 20:07:11 (ET). Electronically Signed: Basim Pina MD at 20:10 EDT , Assessment & Plan Assessment/Plan (1) Combined receptive and expressive aphasia due to acute cerebrovascular accident (CVA): (2) Atrial fibrillation with RVR: (3) Elevated blood pressure reading: (4) Smoker: (5) Hemangioma: QUALIFIERS: Hemangioma site: unspecified site Qualified Code(s): D18.00 - Hemangioma unspecified site PLAN: Plan 1. Acute CVA; with the abrupt onset of expressive aphasia likely affecting Broca's area with CT evidence of ~50 to 69% stenosis of both ICA origins - Admit to PCU for treatment under the stroke protocol. Patient was not a TNK candidate due to uncertain time of his symptom onset. Start aspirin and statin plus check lipid profile and hemoglobin A1c to enhance his metabolic evaluation. Check carotid Dopplers to confirm stenosis suspected on CT this admission. 2. Apparently new-onset atrial fibrillation; with rapid ventricular response at ~136 bpm present on admission likely causing #1 - We will not start full anticoagulation until 3 days after this acute event per [facility] teleneurology recommendations. Will give IV digoxin with an aim to maintain heart rate less than 100 bpm without adversely impacting blood pressure. Check TSH to evaluate for possible endocrinologic cause. 3. Chronic tobacco abuse complicating #1 & #2 - Tobacco cessation will be strongly encouraged with nicotine patch offered to control cravings. 4. Overweight; BMI of 28 this admission - Weight loss will be recommended. 5. History of lipoma of face - Noted. 6. History of hemangioma - Noted. 7. Osteoarthritis - Give Tylenol as needed. 8. DVT prophylaxis - Lovenox 40 mg subcu daily. Total time: Approximately 75 minutes. Charges/Coding Visit Charges Inpatient E&M: 19308 Init Hosp L3
--- NOTE | 2024-03-15 20:45 | ECHOD_ITS ---
Reason For Study: TIA/CVA Procedure This was a 2D Doppler, Color Flow transthoracic echocardiogram. The study was technically difficult. Exam performed portable in patient room. Left Ventricle Normal LV size. The estimated ejection fraction is 55 %. Unable to assess diastolic dysfunction. No regional wall motion abnormalities noted. Right Ventricle Normal RV size. Normal systolic function. Atria The left and right atria are normal. No doppler evidence for ASD. Bubble contrast study negative for right to left interatrial shunt. Mitral Valve There is moderate mitral annular calcification. There is no mitral valve stenosis. Trivial mitral valve insufficiency. Tricuspid Valve There is no tricuspid stenosis. Trivial tricuspid valve insufficiency. Pulmonary artery systolic pressure is 35 mmHg. Aortic Valve Trisinus/trileaflet aortic valve. Aortic sclerosis, no stenosis. There is no aortic stenosis. No aortic valve insufficiency. Pulmonic Valve There is no pulmonic valvular stenosis. No pulmonic valve insufficiency. Great Vessels Normal aortic root. Pericardium/Pleural No pericardial effusion. Medication Performed a rapid injection of agitated mix of 9 cc saline and 1cc air to assess for atrial septal defect. MMode/2D Measurements & Calculations LVIDd: 4.4 cm IVSd: 1.6 cm LVOT diam: 2.1 cm LVIDs: 3.3 cm LVPWd: 1.4 cm RVDd: 4.2 cm FS: 24.3 % LVOT area: 3.4 cm2 Ao root diam: 3.7 cm LAV(MOD-bp): 57.0 ml LVAd ap4: 25.4 cm2 LAV(MOD-bp) Indexed: 26.4 ml/m2 LVLd ap4: 7.0 cm LAV(MOD-sp2): 70.1 ml EDV(MOD-sp4): 75.0 ml LAV(MOD-sp4): 46.3 ml EDV(sp4-el): 78.4 ml LVAs ap4: 19.2 cm2 LVLs ap4: 6.4 cm ESV(MOD-sp4): 47.1 ml ESV(sp4-el): 49.1 ml EF(MOD-sp4): 37.1 % EF(sp4-el): 37.4 % LVAd ap2: 33.8 cm2 SV(MOD-sp4): 27.8 ml SV(MOD-sp2): 43.0 ml LVLd ap2: 8.3 cm EDV(MOD-sp2): 113.5 ml EDV(sp2-el): 117.1 ml LVAs ap2: 24.5 cm2 LVLs ap2: 6.9 cm ESV(MOD-sp2): 70.5 ml ESV(sp2-el): 73.5 ml EF(MOD-sp2): 37.9 % SV(sp4-el): 29.3 ml LA dimension(2D): 5.0 cm LA A4 area: 17.8 cm2 RA A4 area: 21.3 cm2 TAPSE: 1.6 cm Time Measurements MV dec time: 0.17 sec Doppler Measurements & Calculations MV E max sajan: 82.4 cm/sec Lat Peak E' Sajan: 10.6 cm/sec Med Peak E' Sajan: 6.5 cm/sec E/E' lat: 7.8 E/E' med: 12.7 Ao V2 max: 109.7 cm/sec LV V1 max: 94.0 cm/sec SV(LVOT): 56.2 ml Ao max P.8 mmHg LV V1 max P.6 mmHg Ao V2 mean: 75.8 cm/sec LV V1 mean P.8 mmHg Ao mean P.7 mmHg LV V1 mean: 62.0 cm/sec Ao V2 VTI: 20.4 cm LV V1 VTI: 16.7 cm AV (velocity ratio): 0.82 YANE(I,D): 2.8 cm2 YANE(V,D): 2.9 cm2 PA V2 max: 70.9 cm/sec TR max sajan: 277.9 cm/sec PA max PG (full): 1.2 mmHg TR max P.9 mmHg ECHO/Echo Complete Interpretation Summary The estimated ejection fraction is 55 %. Unable to assess diastolic dysfunction. Trivial mitral valve insufficiency. Ordering Physician: Davis Hall Performed By: Niharika Jain RDCS
[2024-03-15] MEDS: Atorvastatin Calcium 40 MG Tablet PO (21:51)
[2024-03-15] MEDS: Aspirin 325 MG Tablet PO (21:55)
[2024-03-15 22:17] LABS: Hemoglobin A1c 5.1 % (3.8-5.6)
[2024-03-15 22:18] LABS: Thyroid Stim Hormone (TSH) 2.52 uIU/mL (0.358-3.74)
[2024-03-16] VITALS (8 sets, daily range): BP systolic 148–168; BP diastolic 100–115; PULSE 66–102; RESP 14–20; TEMP 36.6–36.8; O2SAT 94–100; BMI 27.2
[2024-03-16] MEDS: Acetaminophen 325 MG Tablet 650 MG PO (01:48)
[2024-03-16 05:26] LABS: Amphetamine Urine VISTA NEGATIVE (<1000 ng/mL); Barbiturate Urine VISTA NEGATIVE (< 200 ng/mL); Benzodiazepine Urine VISTA NEGATIVE (< 200 ng/mL); Cocaine Urine VISTA NEGATIVE (< 300 ng/mL); Ecstacy Urine VISTA NEGATIVE (< 500 ng/mL); Methadone Urine VISTA NEGATIVE (< 300 ng/mL); PCP Urine VISTA NEGATIVE (< 25 ng/mL); THC Urine VISTA POSITIVE (< 50 ng/mL); Vista UDS pH Range 5
[2024-03-16 07:43] LABS: Cholesterol 153 mg/dL (200); High Density Lipoprotein 50 mg/dL; Triglycerides 101 mg/dL; Very Low Density Lipoprotein 20 mg/dL (5-40)
[2024-03-16] MEDS: Enoxaparin 40 MG/0.4 ML Syringe SC (08:40)
[2024-03-16] MEDS: Aspirin 81 MG TAB.CHEW PO (08:41)
--- NOTE | 2024-03-16 08:58 | CASEMGMT ---
RN ROSELYN Assessment: Face to Face with pt for initial transition planning/care coordination assessment. RN CM introduced self and role at [facility], pt voices understanding and consents to assessment. Pt is A&O x4 and answers all questions appropriately at this time. Care providers, pharmacy, and demographics verified/updated. Admitting Dx: Acute CVA with expressive aphasia PCP: Dr. Jaffe Specialists: None Preferred Pharmacy: [facility] in [place] Insurance: [place] Prescription Benefit: yes LNOK: Daughter Crystal (lives out of town) Living Arrangements: Pt lives at home in a 2 story home with 1 step to enter. Pt reports bed and bath is on the 2nd level with a half bath on the main level. Pt is independent with ADLs and IADLs. Pt is still working. Transportation: Pt drives self and denies concerns with transportation. DME: None HHC/SNF: No history Pt states no concerns with going home at time of dc. Pt states no further concerns/needs. CM to follow. Advised pt to ask CM if any further question/concerns/needs arise, voices understanding. Pt Goal: Home Plan: Home with no needs, but final plan will be determine after PT/OT evaluations. Pt reports he did not have any extemity weakness, only expressive aphasia. Yasmine Tobar MSN, RN, CCM
--- NOTE | 2024-03-16 09:00 | MRI_ITS ---
We are attempting to reach an attending provider to discuss findings. An addendum with communication details will be sent when the communication is complete. STUDY: MRI BRAIN WITHOUT CONTRAST REASON FOR EXAM: Male, 69 years old. Expressive aphasia. TECHNIQUE: Standardized multiplanar fat and water weighted pulse sequences were obtained. COMPARISON: Head CT dated March 15, 2024. FINDINGS: Moderate acute infarction is present in the anterior to posterior medial aspect of the left occipital lobe extending superiorly into the posterior cortices of the left parietal lobe as well. There is mild cerebral atrophy with widening of the extra-axial spaces and ventricular dilatation. There are a limited number of small white matter hyperintensities, distributed throughout the deep white matter tracts of the cerebral hemispheres, consistent with mild chronic white matter ischemic changes. Normal T2* images of the brain without demonstrated susceptibility artifact. There is no demonstrated hemosiderin stain. Normal bilateral basal ganglia. Normal thalami. There is no extra-axial fluid accumulation. Normal flow voids within the major intracranial circulation suggesting patency by spin echo criteria. Normal sella turcica, pituitary gland, infundibular stalk, optic chiasm and hypothalamus. Normal tectal plate and pineal gland. Normal midbrain, zack and medulla. Normal cerebellum. Normal basal cisterns. Normal bilateral temporal bones. Normal bilateral internal auditory canals. No demonstrated orbital abnormality, within the constraints of a routine brain study. Normal visualized paranasal sinuses. Normal calvarium and skull base. Normal visualized soft tissue structures. Normal visualized upper cervical spine. MRI/Brain without Contrast IMPRESSION: Moderate size acute left occipital and parietal lobes infarct 1. Moderate acute infarction is present in the anterior to posterior medial aspect of the left occipital lobe extending superiorly into the posterior cortices of the left parietal lobe as well. Electronically Signed: Vinod Tinoco MD at 12:05 EDT ,
--- NOTE | 2024-03-16 09:43 | CASEMGMT ---
Social Work PHQ9 assessment completed with pt due to dx of stroke. Pt with score of 11/18 indicating no concerns with depression. SW educated pt to correlation between stroke and depression. Pt with no concerns at this time. JAZMINE Jaramillo
--- NOTE | 2024-03-16 09:52 | PCM.PN.HOSP ---
Reason for Visit Reason for Visit: Diagnoses Hemangioma unspecified site (03/15/24) Nicotine dependence, unspecified, uncomplicated (03/15/24) Unspecified atrial fibrillation (03/15/24) Cerebral infarction, unspecified (03/15/24) Elevated blood-pressure reading, without diagnosis of hypertension (03/15/24) Localized swelling, mass and lump, head (03/15/24) Aphasia (03/15/24) Objective Data Objective Data Vital Signs: Vital Signs Temp Pulse Resp BP Pulse Ox O2 Del Method 98.3 F 66 18 149/111 H 99 Room Air 03/16/24 08:37 03/16/24 08:37 03/16/24 08:37 03/16/24 08:37 03/16/24 08:37 03/16/24 08:37 Oxygen Delivery Method Room Air Weight: 201 lb 0.985 oz Body Mass Index (BMI) 27.2 Lab / Micro Data 03/15/24 19:30 03/15/24 19:30 Labs: Laboratory Results - last 24 hr 03/15/24 19:30: WBC 9.4, RBC 5.37, Hgb 15.7, Hct 50.1, MCV 93.3, MCH 29.2, MCHC 31.3 L, RDW Std Deviation 50.3 H, RDW Coeff of Nico 14.7 H, Plt Count 166, MPV 13.5 H, Immature Gran % (Auto) 0.400, Neut % (Auto) 69.5, Lymph % (Auto) 17.0 L, [place] % (Auto) 10.0, Eos % (Auto) 2.1, Baso % (Auto) 1.0, Absolute Neuts (auto) 6.5, Absolute Lymphs (auto) 1.60, Nucleated RBC % 0, PT 14.3, INR 1.1, APTT 27.3, Sodium 138, Potassium 4.3, Chloride 109 H, Carbon Dioxide 20.0 L, Anion Gap 9, BUN 23 H, Creatinine 1.22, Estim Creat Clear Calc 63.61, Est GFR (MDRD) Af Amer 76, Est GFR (MDRD) Non-Af 63, BUN/Creatinine Ratio 18.9, Glucose 121 H, Hemoglobin A1c 5.1, Calcium 9.6, Troponin I High Sens 41, TSH 2.52, POC Glucose 120 H 03/16/24 04:55: Urine Opiates Screen NEGATIVE, Urine Methadone Screen NEGATIVE, Ur Barbiturates Screen NEGATIVE, Ur Phencyclidine Scrn NEGATIVE, Ur Amphetamines Screen NEGATIVE, MDMA (Ecstasy) Screen NEGATIVE, U Benzodiazepines Scrn NEGATIVE, Urine Cocaine Screen NEGATIVE, U Cannabinoids Screen POSITIVE H, Ur Drug Screen Comment 03/16/24 06:45: Triglycerides 101, Cholesterol 153, LDL Cholesterol 83, VLDL Cholesterol 20, HDL Cholesterol 50 Radiography Diagnostic Testing: Radiology Impression Brain CT 03/15/24 19:30 IMPRESSION: Negative Brain CT without contrast. N.B. : The above Results were Read Back by Basim Pina MD to Mark Zhang MD, and understanding confirmed on 03/15/2024 19:47:56 (ET). Electronically Signed: Basim Pina MD at 19:47 EDT Reading Location ID and State: [facility] / [place] , Service support , Head/Neck CTA 03/15/24 19:30 IMPRESSION: No definite acute large vessel occlusion. Prominent calcified atherosclerosis of both cavernous carotid arteries. Prominent calcified atherosclerosis of both carotid bulbs and proximal ICAs with as much as 50-69% stenosis of both ICA origins. N.B. : The above Results were Read Back by Basim Pina MD to Mark Zhang MD, and understanding confirmed on 03/15/2024 20:07:11 (ET). Electronically Signed: Basim Pina MD at 20:10 EDT , ADDENDUM: 03/15/242016 IMPRESSION: No definite acute large vessel occlusion. Prominent calcified atherosclerosis of both cavernous carotid arteries. Prominent calcified atherosclerosis of both carotid bulbs and proximal ICAs with as much as 50-69% stenosis of both ICA origins. N.B. : The above Results were Read Back by Basim Pina MD to Mark Zhang MD, and understanding confirmed on 03/15/2024 20:07:11 (ET). Electronically Signed: Basim Pina MD at 20:10 EDT , Chest X-Ray 03/15/24 20:12 IMPRESSION: There are findings consistent with COPD. There is no evidence of acute chest disease. Electronically Signed: Basim Pina MD at 21:07 EDT , Physical Exam Narrative Seen and examined. Patient understands the speech and can but has a problem in speaking out. Verbal speech output is impaired. A-fib on the monitor Physical exam General: Alert, Oriented x3, Cooperative HEENT: Atraumatic, PERRLA, EOMI, Normocephalic Oral: No dysphagia. No Gingival or Mucosal Lesions/ Ulcerations Neck: Supple, No JVD, Negative Carotid Bruits Chest wall/Lungs: Air entry diminished in bilateral lung bases. No crepitation/rhonchi Cardiovascular: Regular rate, Regular Rhythm, Normal S1, Normal S2, No M/G/R Abdomen: Bowel Sounds Present, Soft, Non Tender, Non-Distended : No dysuria. No renal angle tenderness. No suprapubic tenderness. Extremities: No edema, Capillary Refill Less than 3 Seconds Skin: No rashes, No breakdown Musculoskeletal: No Tenderness to Palpation of Joints or Extremities Neurological: Cranial nerves II-XII grossly intact, DTR 2+. Muscle strength 5/5 at major joints. NIHSS is 4, 2 for severe aphasia and 2 for LOC questions Psych/Mental Status: Normal Affect, Appropriate. Assessment & Plan Assessment/Plan (1) Combined receptive and expressive aphasia due to acute cerebrovascular accident (CVA): (2) Atrial fibrillation with RVR: (3) Elevated blood pressure reading: (4) Smoker: (5) Hemangioma: QUALIFIERS: Hemangioma site: unspecified site Qualified Code(s): D18.00 - Hemangioma unspecified site PLAN: Plan 69-year-old gentleman was admitted for severe expressive aphasia that is started about 3 PM to 4 PM yesterday as told by patient different provider patient not candidate for TNK as LK W unknown 1. Acute CVA affecting medial aspect of left occipital and parietal lobe involving Broca speech area with CT evidence of ~50 to 69% stenosis of both ICA origins with calcified atherosclerosis of both cavernous carotid arteries probably cardioembolic ischemic stroke due to A-fib- Admit to PCU for treatment under the stroke protocol. Patient was not a TNK candidate due to uncertain time of his symptom onset. Patient on baby aspirin and high intensity statin. Fasting profile shows LDL 83, HDL 50. Triglycerides 101. A1c 5.1. Troponin negative. Glucose 120. Patient had echo done EF 55% with negative bubble contrast study. MRI brain shows moderate acute infarction of the anterior to posterior medial aspect of left occipital lobe and left parietal lobe. Patient was evaluated by the [facility] teleneurologist. Recommended changing baby aspirin to Eliquis after 3 days. BP and glucose control as per stroke guidelines. PT OT and speech evaluation to continue. Outpatient vascular surgery follow-up for moderate bilateral carotid stenosis. 2. Apparently new-onset atrial fibrillation; with rapid ventricular response at ~136 bpm present on admission heart rate is better controlled 102/min. Blood pressure in permissive hypertensive range. We will not start full anticoagulation until 3 days after this acute event per [facility] teleneurology recommendations. Started on low-dose metoprolol 12.5 mg twice daily not to adversely affect his BP. Will give IV digoxin with an aim to maintain heart rate less than 100 bpm without adversely impacting blood pressure. TSH normal. 3. Chronic tobacco abuse - Tobacco cessation will be strongly encouraged with nicotine patch offered to control cravings. 4. Overweight; BMI of 28 this admission - Weight loss will be recommended. 5. History of lipoma of face - Noted. 6. History of hemangioma - Noted. 7. Osteoarthritis - Give Tylenol as needed. 8. DVT prophylaxis - Lovenox 40 mg subcu daily. I talked to the patient neighbor, her daughter came from [place] to visit him another relative in the room and explained the etiology, pathophysiology aspect of a stroke. I also discussed about A-fib and management plan. PT, OT and speech therapy are to make full management plan but most likely home with home health discharge. Discussed with hospice case manager and medical social worker. Total time of the visit including total time spent in counseling or coordination of care, (more than 50% of the total time, spent in obtaining medical information from nurses and other ancillary care providers,explaining to the patient about labs, imaging, diagnosis and management of active complex medical conditions), , review of labs and imaging is 40 minutes. Laboratory Results 03/15/24 19:30: WBC 9.4, RBC 5.37, Hgb 15.7, Hct 50.1, MCV 93.3, MCH 29.2, MCHC 31.3 L, RDW Std Deviation 50.3 H, RDW Coeff of Nico 14.7 H, Plt Count 166, MPV 13.5 H, Immature Gran % (Auto) 0.400, Neut % (Auto) 69.5, Lymph % (Auto) 17.0 L, [place] % (Auto) 10.0, Eos % (Auto) 2.1, Baso % (Auto) 1.0, Absolute Neuts (auto) 6.5, Absolute Lymphs (auto) 1.60, Nucleated RBC % 0, PT 14.3, INR 1.1, APTT 27.3, Sodium 138, Potassium 4.3, Chloride 109 H, Carbon Dioxide 20.0 L, Anion Gap 9, BUN 23 H, Creatinine 1.22, Estim Creat Clear Calc 63.61, Est GFR (MDRD) Af Amer 76, Est GFR (MDRD) Non-Af 63, BUN/Creatinine Ratio 18.9, Glucose 121 H, Hemoglobin A1c 5.1, Calcium 9.6, Troponin I High Sens 41, TSH 2.52, POC Glucose 120 H 03/16/24 04:55: Urine Opiates Screen NEGATIVE, Urine Methadone Screen NEGATIVE, Ur Barbiturates Screen NEGATIVE, Ur Phencyclidine Scrn NEGATIVE, Ur Amphetamines Screen NEGATIVE, MDMA (Ecstasy) Screen NEGATIVE, U Benzodiazepines Scrn NEGATIVE, Urine Cocaine Screen NEGATIVE, U Cannabinoids Screen POSITIVE H, Ur Drug Screen Comment 03/16/24 06:45: Triglycerides 101, Cholesterol 153, LDL Cholesterol 83, VLDL Cholesterol 20, HDL Cholesterol 50 Clinical Impression(s) from Imaging Studies Brain CT 03/15/24 19:30 IMPRESSION: Negative Brain CT without contrast. Head/Neck CTA 03/15/24 19:30 IMPRESSION: No definite acute large vessel occlusion. Prominent calcified atherosclerosis of both cavernous carotid arteries. Prominent calcified atherosclerosis of both carotid bulbs and proximal ICAs with as much as 50-69% stenosis of both ICA origins. Chest X-Ray 03/15/24 20:12 IMPRESSION: There are findings consistent with COPD. There is no evidence of acute chest disease. Echocardiogram 03/15/24 20:45 Interpretation Summary The estimated ejection fraction is 55 %. Unable to assess diastolic dysfunction. Trivial mitral valve insufficiency. Ordering Physician: Davis Hall Performed By: Niharika Jain RDCS Brain MRI 03/16/24 09:00 IMPRESSION: Moderate size acute left occipital and parietal lobes infarct 1. Moderate acute infarction is present in the anterior to posterior medial aspect of the left occipital lobe extending superiorly into the posterior cortices of the left parietal lobe as well. Charges/Coding Visit Charges Inpatient E&M: 31605 Subs Hosp L3
--- NOTE | 2024-03-16 10:28 | NEURO.CONS ---
Assessment and Plan: Neuro Assessment/Plan RAMÓN ORTIZ is a 69 M with a past medical history of HTN and newly diagnosed AFib, being evaluated by Teleneurology for acute stroke, MRI with acute stroke Diagnosis: acute left MCA ischemic stroke etiology likely cardioembolic due afib Plan: cont ASA pt will need termite control servicer AC due AFIb, could start Eliquis 5 days post stroke smoke cessation TTE high intensity statin hab1c lipid panel vascular risk modification moderate Carotid stenosis Consult NSGY for possible revascuarlization HPI Consult Data Date of Consult: 03/16/24 HPI Narrative HPI Narrative: RAMÓN ORTIZ, is a 69 M who presents with acute aphasia. Pt was out side the window for TPA, CTA showed no LVO but moderate left carotid stenosis. he was also in Afib with RVR. he was seen by Teleneurology for acute stroke activation. [facility] Medical History Hypertension Home Medications ?Medication ?Instructions ?Recorded ?Last Taken ?Type amlodipine 5 mg tablet 10 mg PO DAILY bp 07/25/21 Unknown History Allergy/AdvReac Type Severity Reaction Status Date / Time No Known Allergies Allergy Verified 03/15/24 19:36 Family History Unknown No problems noted. Social History Smoking Status: Current every day smoker tobacco type: cigarettes alcohol intake: current substance use type: does not use additional social history: DOES USE ASPIRIN NEEDED DOES USE IBUPROFEN NEEDED Vital Signs Vital Signs Vital Signs: 03/15/24 19:29 03/15/24 19:35 03/15/24 19:49 Temperature 97 F L Temperature Source Temporal Pulse Rate 128 H 128 H Pulse Strength Respiratory Rate 18 18 Respiratory Effort Respiratory Depth Respiratory Pattern Blood Pressure 199/133 H 199/133 H Blood Pressure Mean 155 155 Blood Pressure Source Blood Pressure Position Blood Pressure Location Pulse Ox 100 100 Oxygen Delivery Method Room Air Room Air Room Air 03/15/24 20:00 03/15/24 20:30 03/15/24 20:54 Temperature Temperature Source Pulse Rate 136 H 102 H 128 H Pulse Strength Respiratory Rate 16 13 18 Respiratory Effort Respiratory Depth Respiratory Pattern Blood Pressure 191/133 H 169/139 H 199/133 H Blood Pressure Mean 152 149 155 Blood Pressure Source Blood Pressure Position Blood Pressure Location Pulse Ox 99 98 100 Oxygen Delivery Method Room Air Room Air Room Air 03/15/24 20:59 03/15/24 21:36 03/15/24 22:00 Temperature 98.7 F 98.3 F Temperature Source Oral Pulse Rate 89 52 L Pulse Strength Normal (2+) Respiratory Rate 18 16 Respiratory Effort Respiratory Depth Respiratory Pattern Blood Pressure 185/135 H 139/122 H Blood Pressure Mean 151 127 Blood Pressure Source Monitor Blood Pressure Position Semi-Fowlers Blood Pressure Location Left Arm Pulse Ox 97 98 Oxygen Delivery Method Room Air 03/15/24 22:00 03/15/24 23:48 03/16/24 01:36 Temperature 98.1 F Temperature Source Oral Pulse Rate 82 Pulse Strength Respiratory Rate 17 Respiratory Effort Normal Non-Labored Respiratory Depth Normal Respiratory Pattern Normal Blood Pressure 152/115 H Blood Pressure Mean 127 Blood Pressure Source Monitor Blood Pressure Position Semi-Fowlers Blood Pressure Location Left Arm Pulse Ox 97 97 Oxygen Delivery Method Room Air Room Air Room Air 03/16/24 03:06 03/16/24 05:36 03/16/24 07:54 Temperature 98.1 F Temperature Source Oral Pulse Rate 68 Pulse Strength Normal (2+) Respiratory Rate 14 Respiratory Effort Normal Non-Labored Respiratory Depth Normal Respiratory Pattern Blood Pressure 157/109 H Blood Pressure Mean 125 Blood Pressure Source Monitor Blood Pressure Position Supine Blood Pressure Location Left Arm Pulse Ox 99 Oxygen Delivery Method Room Air Room Air 03/16/24 08:03 03/16/24 08:37 Temperature 98.3 F Temperature Source Oral Pulse Rate 66 Pulse Strength Respiratory Rate 18 Respiratory Effort Normal Non-Labored Respiratory Depth Normal Respiratory Pattern Normal Blood Pressure 149/111 H Blood Pressure Mean 123 Blood Pressure Source Monitor Blood Pressure Position Semi-Fowlers Blood Pressure Location Left Arm Pulse Ox 99 Oxygen Delivery Method Room Air Room Air Weight Weight: 91.2 kg Body Mass Index (BMI) 27.2 EEG Results Procedure Details EEG Procedure Details: RAMÓN ORTIZ is a 69 year old M with a past medical history of , who presents for evaluation of Electroencephalogram on DATE at TIME NIHSS NIHSS Nursing Documentation NIHSS Nursing Documentation: NIHSS: Ischemic Stroke/TIA Start: 03/15/24 21:15 Text: For ICU Patients: NIH sroke scale at Status: Complete presentation and every 2 hours or with change in RN caregiver Freq: [id number] Protocol: Activity Type Activity Date Activity User E-sign Co-sign Detail Recorded Client Recorded Date Recorded By Document 03/15/24 21:36 TLV desktop 03/15/24 21:37 TLV 03/15/24 21:36 NIH Stroke Scale [NIHSS] A score of 0 is normal or asymptomatic . Total possible score is 42. Inpatient: RN or Physician to activate a stroke alert for onset of new stroke symptoms or with NIHSS increase >/= 3 points. Following change in neurological status, NIHSS will be performed per physician order or more frequently PRN. -1a. Level of Consciousness Alert; keenly responsive -1b. LOC Questions Answers neither question correctly. -1c. LOC Commands Performs both tasks correctly . -2. Best Gaze Normal -3. Visual No visual loss -4. Facial Palsy Minor paralysis (flattened nasolabial fold , asymmetry on smiling) -5a. Left Arm No drift; arm holds 90 (or 45 ) degrees for full 10 seconds -5b. Right Arm No drift; arm holds 90 (or 45 ) degrees for full 10 seconds -6a. Left Leg No drift; leg holds 30-degree position for full 5 seconds -6b. Right Leg No drift; leg holds 30-degree position for full 5 seconds -7. Limb Ataxia Absent -8. Sensory Normal; no sensory loss -9. Best Language Severe aphasia; -10. Dysarthria Normal -11. Extinction and Inattention No abnormality -Total 5 Query Text:A score of 0 is normal or asymptomatic. Total possible score is 42 . ED: Notify Physician for NIHSS increase by > / = 3 points. Inpatient: RN or Physician to activate a stroke alert for NIHSS increase of > / = 3 points. Coma Scale [Assess] -Eye Opening Spontaneous -Motor Obeys Commands -Verbal Inappropriate [Total] -Coma Scale Total 13 NIHSS: Ischemic Stroke/TIA Start: 03/15/24 21:15 Text: For PCU Patients: NIH and Neuro Check every 4 Status: Active hours, PRN and with change in RN caregiver. Freq: [id number] Protocol: Activity Type Activity Date Activity User E-sign Co-sign Detail Recorded Client Recorded Date Recorded By Document 03/16/24 08:39 ZZB desk 03/16/24 08:40 ZZB 03/16/24 08:39 NIH Stroke Scale [NIHSS] A score of 0 is normal or asymptomatic . Total possible score is 42. Inpatient: RN or Physician to activate a stroke alert for onset of new stroke symptoms or with NIHSS increase >/= 3 points. Following change in neurological status, NIHSS will be performed per physician order or more frequently PRN. -1a. Level of Consciousness Alert; keenly responsive -1b. LOC Questions Answers neither question correctly. -1c. LOC Commands Performs both tasks correctly . -2. Best Gaze Normal -3. Visual No visual loss -4. Facial Palsy Normal symmetrical movements -5a. Left Arm No drift; arm holds 90 (or 45 ) degrees for full 10 seconds -5b. Right Arm No drift; arm holds 90 (or 45 ) degrees for full 10 seconds -6a. Left Leg No drift; leg holds 30-degree position for full 5 seconds -6b. Right Leg No drift; leg holds 30-degree position for full 5 seconds -7. Limb Ataxia Absent -8. Sensory Normal; no sensory loss -9. Best Language Severe aphasia; -10. Dysarthria Normal -11. Extinction and Inattention No abnormality -Total 4 Query Text:A score of 0 is normal or asymptomatic. Total possible score is 42 . ED: Notify Physician for NIHSS increase by > / = 3 points. Inpatient: RN or Physician to activate a stroke alert for NIHSS increase of > / = 3 points. Coma Scale [Assess] -Eye Opening Spontaneous -Motor Localizes to Pain -Verbal Inappropriate [Total] -Coma Scale Total 12 Lab / Micro Data 03/15/24 19:30 03/15/24 19:30 Labs: Laboratory Results - last 24 hr 03/15/24 19:30: WBC 9.4, RBC 5.37, Hgb 15.7, Hct 50.1, MCV 93.3, MCH 29.2, MCHC 31.3 L, RDW Std Deviation 50.3 H, RDW Coeff of Nico 14.7 H, Plt Count 166, MPV 13.5 H, Immature Gran % (Auto) 0.400, Neut % (Auto) 69.5, Lymph % (Auto) 17.0 L, [place] % (Auto) 10.0, Eos % (Auto) 2.1, Baso % (Auto) 1.0, Absolute Neuts (auto) 6.5, Absolute Lymphs (auto) 1.60, Nucleated RBC % 0, PT 14.3, INR 1.1, APTT 27.3, Sodium 138, Potassium 4.3, Chloride 109 H, Carbon Dioxide 20.0 L, Anion Gap 9, BUN 23 H, Creatinine 1.22, Estim Creat Clear Calc 63.61, Est GFR (MDRD) Af Amer 76, Est GFR (MDRD) Non-Af 63, BUN/Creatinine Ratio 18.9, Glucose 121 H, Hemoglobin A1c 5.1, Calcium 9.6, Troponin I High Sens 41, TSH 2.52, POC Glucose 120 H 03/16/24 04:55: Urine Opiates Screen NEGATIVE, Urine Methadone Screen NEGATIVE, Ur Barbiturates Screen NEGATIVE, Ur Phencyclidine Scrn NEGATIVE, Ur Amphetamines Screen NEGATIVE, MDMA (Ecstasy) Screen NEGATIVE, U Benzodiazepines Scrn NEGATIVE, Urine Cocaine Screen NEGATIVE, U Cannabinoids Screen POSITIVE H, Ur Drug Screen Comment 03/16/24 06:45: Triglycerides 101, Cholesterol 153, LDL Cholesterol 83, VLDL Cholesterol 20, HDL Cholesterol 50 Imaging Radiology Impression Brain CT 03/15/24 19:30 IMPRESSION: Negative Brain CT without contrast. N.B. : The above Results were Read Back by Basim Pina MD to Mark Zhang MD, and understanding confirmed on 03/15/2024 19:47:56 (ET). Electronically Signed: Basim Pina MD at 19:47 EDT , Head/Neck CTA 03/15/24 19:30 IMPRESSION: No definite acute large vessel occlusion. Prominent calcified atherosclerosis of both cavernous carotid arteries. Prominent calcified atherosclerosis of both carotid bulbs and proximal ICAs with as much as 50-69% stenosis of both ICA origins. N.B. : The above Results were Read Back by Basim Pina MD to Mark Zhang MD, and understanding confirmed on 03/15/2024 20:07:11 (ET). Electronically Signed: Basim Pina MD at 20:10 EDT , ADDENDUM: 03/15/242016 IMPRESSION: No definite acute large vessel occlusion. Prominent calcified atherosclerosis of both cavernous carotid arteries. Prominent calcified atherosclerosis of both carotid bulbs and proximal ICAs with as much as 50-69% stenosis of both ICA origins. N.B. : The above Results were Read Back by Basim Pina MD to Mark Zhang MD, and understanding confirmed on 03/15/2024 20:07:11 (ET). Electronically Signed: Basim Pina MD at 20:10 EDT , Chest X-Ray 03/15/24 20:12 IMPRESSION: There are findings consistent with COPD. There is no evidence of acute chest disease. Electronically Signed: Basim Pina MD at 21:07 EDT , Active Medications Active Medications Active Medications: Current Medications Generic Name Dose Route Start Last Admin Trade Name Freq PRN Reason Stop Dose Admin Acetaminophen 650 mg 03/15/24 21:15 03/16/24 01:48 Acetaminophen 325 Mg Tablet PO 650 mg Q6H PRN PRN Administration Pain 1-10 or Fever Aspirin 81 mg 03/16/24 08:00 03/16/24 08:41 Aspirin 81 Mg Tab.Chew PO 81 mg DAILYCM IMANI Administration Atorvastatin Calcium 40 mg 03/15/24 22:00 03/15/24 21:51 Atorvastatin Calcium 40 Mg Tablet PO 40 mg QHS IMANI Administration Enoxaparin Sodium 40 mg 03/16/24 10:00 03/16/24 08:40 Enoxaparin 40 Mg/0.4 Ml Syringe SC 40 mg DAILY IMANI Administration Sodium Chloride 250 mls @ 15 mls/hr 03/15/24 21:22 IV .[id number] PRN Additional IVPB Infusion Sodium Chloride 250 mls @ 15 mls/hr 03/15/24 21:22 IV .[id number] PRN Saline Flush Nicotine 14 mg 03/16/24 10:00 03/16/24 08:45 Nicotine 14 Mg Patch TD Not Given DAILY IMANI Sodium Chloride 10 - 40 ml 03/15/24 21:22 0.9% Saline Lock 10 Ml Syringe IV UD PRN SALINE FLUSH
--- NOTE | 2024-03-16 13:06 | CASEMGMT ---
Addendum entered by Yasmine Tobar 03/16/24 14:30: [facility]. Only C showing as in network with his specific [place] plan. Referral sent via [facility] but will likely not be able to confirm prior to Monday (due to weekend and holiday). In the event pt progresses and is able to do OP PT, OT, NIB ADJUSTER prior to DC, a Rx was placed on the pts chart and just needs to be signed by the provider. Yasmine SCHMITZ, RN, CCM Original Note: Patient was provided a list of [facility] providers including quality and resource use data and consistent with the patient?s preferred geographic region, medical needs, and insurance network were provided from the [facility] Guide. Yasmine SCHMITZ, RN, CCM
[2024-03-16] MEDS: Metoprolol Tartrate 25 MG Tablet 12.5 MG PO (16:20)
--- NOTE | 2024-03-16 20:35 | NURSING ---
Patient daughter (Sara) spoke with this RN outside of patient presence. States that patient's about 4 years ago. States that following her passing, patient had a suicide attempt. Sara expresses concerns that, with this stroke and speech difficulties, patient's mental health could deteriorate. Sara requests that patient have a screening prior to discharge to evaluate for signs of mental health difficulties. It may be beneficial for patient to receive mental health resources prior to discharge. Sara's concern was communicated to electrical discharge machine operator, Erin Tapia RN and will be passed along in nursing report.
[2024-03-16] MEDS: Atorvastatin Calcium 40 MG Tablet PO (21:58)
[2024-03-17] VITALS (9 sets, daily range): BP systolic 144–183; BP diastolic 97–153; PULSE 55–85; RESP 16–24; TEMP 36.4–36.9; O2SAT 95–100; BMI 27.2
[2024-03-17] MEDS: Aspirin 81 MG TAB.CHEW PO (09:41)
[2024-03-17] MEDS: Metoprolol Tartrate 25 MG Tablet 12.5 MG PO (09:41)
[2024-03-17] MEDS: Enoxaparin 40 MG/0.4 ML Syringe SC (09:42)
--- NOTE | 2024-03-17 11:26 | PCM.DC ---
Discharge Instructions Follow Up Care Test Results: Test results from this visit will be discussed in further detail at your follow-up appointment, if applicable. Discharge Plan Admission Admit Date/Time: 03/15/24 20:37 Attending Provider: Alejandro Velasquez Primary Care Provider: Charito Bell Consulting Providers: Pancho Riggs; Ramiro Najera; Ana Paez; Chelsie Negrete; Melinda Garcia; Nima Aguirre; Deepa Kilgore; Nicholas Green; Maciej Ballard; Madison Kirby; Jorge Tirado; Janny Gore; Berhane Sheth; Anna Chow; Julio Cesar Tobar; Alfonso Ledesma; Romel Luevano; Joyce Callahan; Ortiz Fermin; Davis Hall Instructions Additional Instructions / Restrictions: Outpatient discal therapy Discharge Orders/Prescriptions Prescriptions: New atorvastatin 40 mg Tablet 40 mg PO QHS 30 Days Qty: 30 3RF nicotine 14 mg/24 hr Patch 24 Hour 14 mg transdermal DAILY Qty: 0 0RF lisinopril 10 mg tablet 10 mg PO DAILY 30 Days Qty: 30 3RF Rx Instructions: Hold for SBP less than 120 mmHg Eliquis 5 mg tablet 5 mg PO BID 30 Days Qty: 60 3RF Continued amlodipine 5 MG tablet 10 mg PO DAILY Referrals / Follow Up: Charito Bell, TRAVEL AGENCY MANAGER-C [Primary Care Provider] - Disposition Disposition (needs filled in before D/C Order can be placed): Home Health Service
--- NOTE | 2024-03-17 12:04 | PN.HOSP_ITS ---
Reason for Visit Reason for Visit: Diagnoses Hemangioma unspecified site (03/15/24) Nicotine dependence, unspecified, uncomplicated (03/15/24) Unspecified atrial fibrillation (03/15/24) Cerebral infarction, unspecified (03/15/24) Elevated blood-pressure reading, without diagnosis of hypertension (03/15/24) Localized swelling, mass and lump, head (03/15/24) Aphasia (03/15/24) Objective Data Objective Data Vital Signs: Vital Signs Temp Pulse Resp BP Pulse Ox O2 Del Method 97.5 F L 85 16 168/97 H 100 Room Air 03/17/24 09:36 03/17/24 09:41 03/17/24 09:36 03/17/24 09:41 03/17/24 09:36 03/17/24 09:36 Oxygen Delivery Method Room Air Weight: 201 lb 0.985 oz Body Mass Index (BMI) 27.2 Intake & Output: Intake and Output for Last 24 Hours 03/15/24 03/16/24 03/17/24 23:59 23:59 23:59 Intake Total 440 / 440 150 / 150 Balance 440 / 440 150 / 150 Lab / Micro Data 03/15/24 19:30 03/15/24 19:30 Radiography Diagnostic Testing: Radiology Impression Brain MRI 03/16/24 09:00 IMPRESSION: Moderate size acute left occipital and parietal lobes infarct 1. Moderate acute infarction is present in the anterior to posterior medial aspect of the left occipital lobe extending superiorly into the posterior cortices of the left parietal lobe as well. Electronically Signed: Vinod Tinoco MD at 12:05 EDT Reading Location ID and State: [facility] / [place] , Service support , ADDENDUM: 03/16/24 1225 IMPRESSION: Moderate size acute left occipital and parietal lobes infarct 1. Moderate acute infarction is present in the anterior to posterior medial aspect of the left occipital lobe extending superiorly into the posterior cortices of the left parietal lobe as well. N.B. : The above Results were Read Back by Vinod Tinoco MD to Fre Ulrich RN, and understanding confirmed on 03/16/2024 12:18:47 (ET). Electronically Signed: Vinod Tinoco MD at 12:05 EDT Reading Location ID and State: [facility] / [place] , Service support , Physical Exam Narrative Seen and examined. Patient motor part of verbalization is improving. He further said that he is not able to see clearly on the right peripheral field of vision. Patient understands the speech. A-fib on the monitor Physical exam General: Alert, Oriented x3, Cooperative HEENT: Direct one-to-one visual encounter, right peripheral vision is impaired. Chronic diminished acuity of vision with finger counting. Atraumatic, PERRLA, EOMI, Normocephalic Oral: No dysphagia. No Gingival or Mucosal Lesions/ Ulcerations Neck: Supple, No JVD, Negative Carotid Bruits Chest wall/Lungs: Air entry diminished in bilateral lung bases. No crepitation/rhonchi Cardiovascular: Regular rate, Regular Rhythm, Normal S1, Normal S2, No M/G/R Abdomen: Bowel Sounds Present, Soft, Non Tender, Non-Distended : No dysuria. No renal angle tenderness. No suprapubic tenderness. Extremities: No edema, Capillary Refill Less than 3 Seconds Skin: No rashes, No breakdown Musculoskeletal: No Tenderness to Palpation of Joints or Extremities Neurological: Cranial nerves II-XII grossly intact, DTR 2+. Muscle strength 5/5 at major joints. NIHSS is 3, 1 for severe aphasia and 2 for LOC questions Psych/Mental Status: Normal Affect, Appropriate. Assessment & Plan Assessment/Plan (1) Combined receptive and expressive aphasia due to acute cerebrovascular accident (CVA): (2) Atrial fibrillation with RVR: (3) Elevated blood pressure reading: (4) Smoker: (5) Hemangioma: QUALIFIERS: Hemangioma site: unspecified site Qualified Code(s): D18.00 - Hemangioma unspecified site PLAN: Plan 69-year-old gentleman was admitted for severe expressive aphasia that is started about 3 PM to 4 PM yesterday as told by patient different provider patient not candidate for TNK as LK W unknown 1. Acute CVA affecting medial aspect of left occipital and parietal lobe involving Broca speech area with CT evidence of ~50 to 69% stenosis of both ICA origins with calcified atherosclerosis of both cavernous carotid arteries probably cardioembolic ischemic stroke due to A-fib- Admit to PCU for treatment under the stroke protocol. Patient was not a TNK candidate due to uncertain time of his symptom onset. Patient on baby aspirin and high intensity statin. Fasting profile shows LDL 83, HDL 50. Triglycerides 101. A1c 5.1. Troponin negative. Glucose 120. Patient had echo done EF 55% with negative bubble contrast study. MRI brain shows moderate acute infarction of the anterior to posterior medial aspect of left occipital lobe and left parietal lobe. Patient was evaluated by the [facility] teleneurologist. Recommended changing baby aspirin to Eliquis after 3 days. BP and glucose control as per stroke guidelines. PT OT and speech evaluation to continue. Outpatient vascular surgery follow-up for moderate bilateral carotid stenosis. 03/17: ED physician after discussion with [facility] teleneurologist at time of admission, H&P and teleneurologist yesterday mentioned 3 days before starting anticoagulant for A-fib. Yesterday on 03/16, by mistake he wrote in his note to start Eliquis 5 days post a stroke. I called Dr. Chow and confirmed that starting anticoagulant, Eliquis after 3 days poststroke. This was further communicated to training program assistant Dr. Octaviano Lance. BP was elevated 168/97, 183/153 therefore lisinopril 5 mg given and blood pressure improved to 140/107 that is optimal after 2 days poststroke. Monitor BP and titrate antihypertensive medication. After repeat PT evaluation is upon that patient has difficulty in following command possible mild cognitive deficit, unsteady, sometimes difficult in initiation, planning and execution of movement and therefore recommended SNF. 2. Apparently new-onset atrial fibrillation; with rapid ventricular response at ~136 bpm present on admission heart rate is better controlled 102/min. Blood pressure in permissive hypertensive range. We will not start full anticoagulation until 3 days after this acute event per [facility] teleneurology recommendations. Started on low-dose metoprolol 12.5 mg twice daily not to adversely affect his BP. Will give IV digoxin with an aim to maintain heart rate less than 100 bpm without adversely impacting blood pressure. TSH normal. 03/17: Material Flow Engineer was consulted as per family, the patient's daughter request. He also opinion that starting anticoagulant 3 days poststroke is optimal time. Eliquis 5 mg twice daily from tomorrow morning.Metoprolol dose increased to 25 mg twice daily. 3. Chronic tobacco abuse - Tobacco cessation will be strongly encouraged with nicotine patch offered to control cravings. 4. Overweight; BMI of 28 this admission - Weight loss will be recommended. 5. History of lipoma of face - Noted. 6. History of hemangioma - Noted. 7. Osteoarthritis - Give Tylenol as needed. 8. DVT prophylaxis - Lovenox 40 mg subcu daily. Total time of the visit including total time spent in counseling or coordination of care, (more than 50% of the total time, spent in obtaining medical information from nurses and other ancillary care providers,explaining to the patient about labs, imaging, diagnosis and management of active complex medical conditions), discussion with the patient regarding peripheral loss of vision, speech/language impairment due to stroke, discussion with attending neurologist and training program assistant, conference with PT OT and speech evaluation review of labs and imaging is 55 minutes. Total time of the visit including total time spent in counseling or coordination of care, (more than 50% of the total time, spent in obtaining medical information from nurses and other ancillary care providers,explaining to the patient about labs, imaging, diagnosis and management of active complex medical conditions), , review of labs and imaging is 40 minutes. Laboratory Results 03/15/24 19:30: WBC 9.4, RBC 5.37, Hgb 15.7, Hct 50.1, MCV 93.3, MCH 29.2, MCHC 31.3 L, RDW Std Deviation 50.3 H, RDW Coeff of Nico 14.7 H, Plt Count 166, MPV 13.5 H, Immature Gran % (Auto) 0.400, Neut % (Auto) 69.5, Lymph % (Auto) 17.0 L, Henry % (Auto) 10.0, Eos % (Auto) 2.1, Baso % (Auto) 1.0, Absolute Neuts (auto) 6.5, Absolute Lymphs (auto) 1.60, Nucleated RBC % 0, PT 14.3, INR 1.1, APTT 27.3, Sodium 138, Potassium 4.3, Chloride 109 H, Carbon Dioxide 20.0 L, Anion Gap 9, BUN 23 H, Creatinine 1.22, Estim Creat Clear Calc 63.61, Est GFR (MDRD) Af Amer 76, Est GFR (MDRD) Non-Af 63, BUN/Creatinine Ratio 18.9, Glucose 121 H, Hemoglobin A1c 5.1, Calcium 9.6, Troponin I High Sens 41, TSH 2.52, POC Glucose 120 H 03/16/24 04:55: Urine Opiates Screen NEGATIVE, Urine Methadone Screen NEGATIVE, Ur Barbiturates Screen NEGATIVE, Ur Phencyclidine Scrn NEGATIVE, Ur Amphetamines Screen NEGATIVE, MDMA (Ecstasy) Screen NEGATIVE, U Benzodiazepines Scrn NEGATIVE, Urine Cocaine Screen NEGATIVE, U Cannabinoids Screen POSITIVE H, Ur Drug Screen Comment 03/16/24 06:45: Triglycerides 101, Cholesterol 153, LDL Cholesterol 83, VLDL Cholesterol 20, HDL Cholesterol 50 Clinical Impression(s) from Imaging Studies Brain CT 03/15/24 19:30 IMPRESSION: Negative Brain CT without contrast. Head/Neck CTA 03/15/24 19:30 IMPRESSION: No definite acute large vessel occlusion. Prominent calcified atherosclerosis of both cavernous carotid arteries. Prominent calcified atherosclerosis of both carotid bulbs and proximal ICAs with as much as 50-69% stenosis of both ICA origins. Chest X-Ray 03/15/24 20:12 IMPRESSION: There are findings consistent with COPD. There is no evidence of acute chest disease. Echocardiogram 03/15/24 20:45 Interpretation Summary The estimated ejection fraction is 55 %. Unable to assess diastolic dysfunction. Trivial mitral valve insufficiency. Ordering Physician: Davis Hall Performed By: Niharika Jain RDCS Brain MRI 03/16/24 09:00 IMPRESSION: Moderate size acute left occipital and parietal lobes infarct 1. Moderate acute infarction is present in the anterior to posterior medial aspect of the left occipital lobe extending superiorly into the posterior cortices of the left parietal lobe as well. Charges/Coding Visit Charges Inpatient E&M: 42190 Subs Hosp L3
[2024-03-17] MEDS: Lisinopril 5 MG Tablet PO (12:47)
--- NOTE | 2024-03-17 14:39 | PCM.CONS.C ---
Assessment & Plan Assessment/Plan (1) Atrial fibrillation with RVR: PLAN: Patient's heart rate has been bouncing from 55 up to 120 bpm. I am uncertain of the 120 bpm correlates with activity or not. Would recommend increasing the metoprolol to 25 mg twice daily which has been done. If blood pressure is an issue would DC the lisinopril so that metoprolol could be increased further as tolerated and as needed for rate control. Agree with institution of Eliquis at 5 mg twice daily. Given the patient's normal atria, normal LV function, and no significant valvular heart disease I would recommend the patient be evaluated for possible direct-current cardioversion after 6 weeks of oral anticoagulation therapy. The patient be reevaluated in our office in 3 to 4 weeks. And at that time a decision concerning either proceeding with direct-current cardioversion is spontaneous reversion to sinus rhythm has not occurred or addition of further antiarrhythmic therapy will be discussed and decided. The patient was instructed and given a card to follow-up in our office to call for an appointment for 3 to 4 weeks. (2) Combined receptive and expressive aphasia due to acute cerebrovascular accident (CVA): PLAN: Further management per per the neurology service (3) Elevated blood pressure reading: PLAN: Blood pressure appears to be better controlled we will monitor it in the ambulatory setting. PLAN: Plan 1. [facility] Eliquis 5 mg twice daily tomorrow. 2. Increase metoprolol to 25 mg twice daily. Will monitor for blood pressure and heart rate response. 3. Set up follow-up appointment in the [facility] office for 3 to 4 weeks in anticipation of direct-current cardioversion in the ambulatory setting in 6 to [address] Harrell will be taken over the inpatient service tomorrow morning. HPI Consult Data Date of Consult: 03/17/24 HPI Narrative Reason for Consultation: New onset A.fib HPI Narrative: RAMÓN ORTIZ, is a 69 M who presents with him CVA with visual field defect which is resolving and speech impediment. The patient is able to carry on a conversation can answer questions but has to search for certain words. The patient presented with new onset atrial fibrillation and an MCA presumed embolic event. He is due to start Eliquis tomorrow which will be 3 days post CVA. His echocardiogram done on this admission showed normal LV function with an EF of 55% diastolic dysfunction could not be assessed. There were no regional wall motion abnormalities. The RV was normal both atria were normal there was no Doppler or bubble study evidence of an ASD or PFO. There was moderate mitral annular calcification but no mitral stenosis and trivial mitral insufficiency. There was trivial tricuspid insufficiency with a pulmonary artery systolic pressure estimated at 35. The aortic valve was normal the pulmonic valve was normal. By my interview with the patient he denies any history of coronary disease denies any history of atrial fibrillation. The patient does report that he smokes he has a family history of coronary disease and he has a history of hypertension. Patient does not know his previous cholesterol status. He is not diabetic. Currently the patient does not feel any palpitations he denies any lightheaded spells denies any dizziness syncope or near syncope. He denies any PND or shortness of breath. The telemetry does show heart rates up in the 120s beat per minute range. And other times in the 55 to 60 bpm. [facility] Medical History Hypertension Home Medications ?Medication ?Instructions ?Recorded ?Last Taken ?Type amlodipine 5 mg tablet 10 mg PO DAILY bp 07/25/21 Unknown History apixaban 5 mg tablet (Eliquis) 5 mg PO BID 1 month #60 tabs 03/17/24 Unknown Rx atorvastatin 40 mg tablet 40 mg PO QHS 30 days #30 tabs 03/17/24 Unknown Rx lisinopril 10 mg tablet 10 mg PO DAILY 1 month #30 tabs 03/17/24 Unknown Rx nicotine 14 mg/24 hr daily 14 mg transdermal DAILY #0 ea 03/17/24 Unknown Rx transdermal patch Allergy/AdvReac Type Severity Reaction Status Date / Time No Known Allergies Allergy Verified 03/15/24 19:36 Family History (Updated 03/17/24 @ 14:[address] Octaviano Lance MD) Unknown No problems noted. Brother CAD (coronary artery disease) Social History Smoking Status: Current every day smoker tobacco type: cigarettes alcohol intake: current substance use type: does not use additional social history: DOES USE ASPIRIN NEEDED DOES USE IBUPROFEN NEEDED ROS ROS Narrative Difficult to obtain due to expressive of aphasia which is mild Constitutional Constitutional: Reports as per HPI Eyes Eyes: Reports as per HPI ENT HEENT: Reports systems reviewed and no addt'l complaints, except as documented Cardiovascular Cardiovascular: Reports as per HPI Respiratory/Chest Respiratory/Chest: Reports as per HPI Gastrointestinal Gastrointestinal: Reports systems reviewed and no addt'l complaints, except as documented Genitourinary Genitourinary: Reports systems reviewed and no addt'l complaints, except as documented Musculoskeletal Musculoskeletal: Reports systems reviewed and no addt'l complaints, except as documented Integumentary Integumentary: Reports systems reviewed and no addt'l complaints, except as documented Neurologic Neurologic: Reports as per HPI Psychiatric Psychiatric: Reports systems reviewed and no addt'l complaints, except as documented Endocrine Endocrinology: Reports as per HPI Hematologic/Lymphatic Hematologic/Lymphatic: Reports systems reviewed and no addt'l complaints, except as documented Allergic/Immunologic Allergic/Immunologic: Reports systems reviewed and no addt'l complaints, except as documented Physical Exam Const alert and oriented x3 HEENT normocephalic Eyes EOMs intact bilaterally Neck no JVD and no carotid bruits Chest inspection of chest normal Resp normal respiratory effort and clear to auscultation bilaterally Cardio regular rate Rhythm: abnormal rhythm irregularly irregular Heart Sounds: S1 normal and S2 normal; Negative for click, gallop or murmur Peripheral Pulses: pulses 2+ throughout GI soft to palpation and no bruits Extremity no pedal edema Neuro Neuro Narrative: Patient has an expressive aphasia. He also complains of a right visual field cut he denies any clumsiness or muscle weakness in his hands feet legs or arms. Psych mental status grossly normal Risk Stratification Risk Stratification Applicable: No Charges/Coding Visit Charges Inpatient E&M: 36909 Init Hosp L3 Objective Data Vital Signs: Vital Signs Temp Pulse Resp BP Pulse Ox O2 Del Method 98.4 F 82 16 144/107 H 99 Room Air 03/17/24 14:00 03/17/24 14:00 03/17/24 14:00 03/17/24 14:00 03/17/24 14:00 03/17/24 14:00 Oxygen Delivery Method Room Air Weight: 201 lb 0.985 oz Body Mass Index (BMI) 27.2 Intake & Output: Intake and Output for Last 24 Hours 03/15/24 03/16/24 03/17/24 23:59 23:59 23:59 Intake Total 440 / 440 150 / 150 Balance 440 / 440 150 / 150 Lab / Micro Data Attestation: I reviewed the patient's lab results. 03/15/24 19:30 03/15/24 19:30 Rhythm Strip Rhythm Strip: A-fib Rate: 55 Ectopy: None Cardiology Labs/Tests Rhythm: EKG: ECHO: Stress Test: Cardiac Cath: PCI: CT Surgery: Holter monitor: EPS: PPM: CXR: Chest CT Scan:
[2024-03-17] MEDS: Atorvastatin Calcium 40 MG Tablet PO (21:18)
[2024-03-17] MEDS: Metoprolol Tartrate 25 MG Tablet PO (21:18)
[2024-03-18] VITALS (8 sets, daily range): BP systolic 133–168; BP diastolic 87–110; PULSE 66–78; RESP 16–19; TEMP 35.9–36.4; O2SAT 96–100; BMI 27.2
[2024-03-18] MEDS: APIXABAN 5 MG TABLET PO ×2 (10:10→21:51)
[2024-03-18] MEDS: Metoprolol Tartrate 25 MG Tablet PO ×2 (10:10→21:51)
[2024-03-18] MEDS: Lisinopril 5 MG Tablet PO ×2 (10:10→17:45)
[2024-03-18 10:12] LABS: Absolute Lymphocyte Count 1.45 X10^3/uL (0.83-4.51); Absolute Neutrophil Count 3.5 X10^3/uL (2.0-7.7); Basophil# 0.05 X10^3/uL; Basophil% 0.8 % (0-1); Eosinophil# 0.14 X10^3/uL; Eosinophils% 2.4 % (0-5); Hematocrit 47.4 % (40-54); Hemoglobin 14.8 g/dL (13.0-16.5); Lymphocyte # 1.45 X10^3/ul (0.83-4.51); Lymphocyte % 24.6 % (19-41); Mean Corp Hgb Conc 31.2 g/dL (32-36); Mean Corpuscular Hgb 29.4 pg (27.0-32.0); Mean Corpuscular Volume 94.2 fL (80-94); Mean Platelet Vol. 12.6 fl (6.2-12.0); Monocyte# 0.72 X10^3/uL; Monocyte% 12.2 % (0-10); NRBC Flagged by Analyzer 0 % (0-5); Neutrophil # 3.52 X10^3/uL (2.7-7.7); Neutrophil % 59.7 % (47-70); POSITIVE MORPHOLOGY YES; Platelet Count 119 K/mm3 (150-450); RBC Distribution Width CV 14.5 % (11.6-14.6); RBC Distribution Width SD 49.9 fl (35.1-43.9); Red Blood Count 5.03 M/mm3 (4.6-6.2); White Blood Count 5.9 K/mm3 (4.4-11.0)
[2024-03-18 10:31] LABS: Anion Gap 6 (5-15); BUN 15 mg/dL (7-18); BUN/Creat Ratio 12.9 RATIO (10-20); Calcium,Total 9.5 mg/dL (8.5-10.1); Chloride 111 mmol/L (98-107); Creatinine, Serum 1.16 mg/dL (0.70-1.30); EST Glomerular Filtration Rate 67 mL/min (>60); Est Glom Filt Rate - Afr Amer 81 mL/min (>60); Glucose 96 mg/dL (74-106); Potassium 4.5 mmol/L (3.5-5.1); Sodium Level 140 mmol/L (136-145)
[2024-03-18 10:40] LABS: Differential Indicated SCAN CRITERIA MET
--- NOTE | 2024-03-18 17:11 | PCM.PN.HOSP ---
Reason for Visit Reason for Visit: Diagnoses Hemangioma unspecified site (03/15/24) Nicotine dependence, unspecified, uncomplicated (03/15/24) Unspecified atrial fibrillation (03/15/24) Cerebral infarction, unspecified (03/15/24) Elevated blood-pressure reading, without diagnosis of hypertension (03/15/24) Localized swelling, mass and lump, head (03/15/24) Aphasia (03/15/24) Objective Data Objective Data Vital Signs: Vital Signs Temp Pulse Resp BP Pulse Ox O2 Del Method 96.9 F L 76 16 168/110 H 99 Room Air 03/18/24 14:23 03/18/24 14:23 03/18/24 14:23 03/18/24 14:23 03/18/24 14:23 03/18/24 14:23 Oxygen Delivery Method Room Air Weight: 201 lb 0.985 oz Body Mass Index (BMI) 27.2 Intake & Output: Intake and Output for Last 24 Hours 03/16/24 03/17/24 03/18/24 23:59 23:59 23:59 Intake Total 440 / 440 175 / 175 0 / 0 Balance 440 / 440 175 / 175 0 / 0 Lab / Micro Data 03/18/24 10:00 03/18/24 10:00 Labs: Laboratory Results - last 24 hr 03/18/24 10:00: WBC 5.9, RBC 5.03, Hgb 14.8, Hct 47.4, MCV 94.2 H, MCH 29.4, MCHC 31.2 L, RDW Std Deviation 49.9 H, RDW Coeff of Nico 14.5, Plt Count 119 L, MPV 12.6 H, Immature Gran % (Auto) 0.300, Neut % (Auto) 59.7, Lymph % (Auto) 24.6, [place] % (Auto) 12.2 H, Eos % (Auto) 2.4, Baso % (Auto) 0.8, Absolute Neuts (auto) 3.5, Absolute Lymphs (auto) 1.45, Nucleated RBC % 0, Sodium 140, Potassium 4.5, Chloride 111 H, Carbon Dioxide 23.0, Anion Gap 6, BUN 15, Creatinine 1.16, Estim Creat Clear Calc 66.90, Est GFR (MDRD) Af Amer 81, Est GFR (MDRD) Non-Af 67, BUN/Creatinine Ratio 12.9, Glucose 96, Calcium 9.5 Rhythm Strip Rhythm Strip: A-fib Rate: 55 Ectopy: None Physical Exam Narrative Seen and examined. Patient motor part of verbalization is improving but not loss of right peripheral field of vision. Patient understands the speech. A-fib on the monitor Physical exam General: Alert, Oriented x3, Cooperative HEENT: right peripheral field of vision is impaired. Chronic diminished acuity of vision with finger counting. Atraumatic, PERRLA, EOMI, Normocephalic Oral: No dysphagia. No Gingival or Mucosal Lesions/ Ulcerations Neck: Supple, No JVD, Negative Carotid Bruits Chest wall/Lungs: Air entry diminished in bilateral lung bases. No crepitation/rhonchi Cardiovascular: Regular rate, Regular Rhythm, Normal S1, Normal S2, No M/G/R Abdomen: Bowel Sounds Present, Soft, Non Tender, Non-Distended : No dysuria. No renal angle tenderness. No suprapubic tenderness. Extremities: No edema, Capillary Refill Less than 3 Seconds Skin: No rashes, No breakdown Musculoskeletal: No Tenderness to Palpation of Joints or Extremities Neurological: Cranial nerves II-XII grossly intact, DTR 2+. Muscle strength 5/5 at major joints. NIHSS is 3, 1 for severe aphasia and 2 for LOC questions Psych/Mental Status: Normal Affect, Appropriate. Assessment & Plan Assessment/Plan (1) Combined receptive and expressive aphasia due to acute cerebrovascular accident (CVA): (2) Atrial fibrillation with RVR: (3) Elevated blood pressure reading: (4) Smoker: (5) Hemangioma: PLAN: Plan 69-year-old gentleman was admitted for severe expressive aphasia that is started about 3 PM to 4 PM yesterday as told by patient different provider patient not candidate for TNK as LK W unknown 1. Acute CVA affecting medial aspect of left occipital and parietal lobe involving Broca speech area with CT evidence of ~50 to 69% stenosis of both ICA origins with calcified atherosclerosis of both cavernous carotid arteries probably cardioembolic ischemic stroke due to A-fib- Admit to PCU for treatment under the stroke protocol. Patient was not a TNK candidate due to uncertain time of his symptom onset. Patient on baby aspirin and high intensity statin. Fasting profile shows LDL 83, HDL 50. Triglycerides 101. A1c 5.1. Troponin negative. Glucose 120. Patient had echo done EF 55% with negative bubble contrast study. MRI brain shows moderate acute infarction of the anterior to posterior medial aspect of left occipital lobe and left parietal lobe. Patient was evaluated by the [facility] teleneurologist. Recommended changing baby aspirin to Eliquis after 3 days. BP and glucose control as per stroke guidelines. PT OT and speech evaluation to continue. Outpatient vascular surgery follow-up for moderate bilateral carotid stenosis. 03/17: ED physician after discussion with [facility] teleneurologist at time of admission, H&P and teleneurologist yesterday mentioned 3 days before starting anticoagulant for A-fib. Yesterday on 03/16, by mistake he wrote in his note to start Eliquis 5 days post a stroke. I called Dr. Chow and confirmed that starting anticoagulant, Eliquis after 3 days poststroke. This was further communicated to depilatory painter Dr. Octaviano Lance. BP was elevated 168/97, 183/153 therefore lisinopril 5 mg given and blood pressure improved to 140/107 that is optimal after 2 days poststroke. Monitor BP and titrate antihypertensive medication. After repeat PT evaluation is upon that patient has difficulty in following command possible mild cognitive deficit, unsteady, sometimes difficult in initiation, planning and execution of movement and therefore recommended SNF. 03/18: BP was high at 168/110. Extra afternoon dose of lisinopril 5 mg was given and blood pressure profile better. Most recent 140/105. 2. Apparently new-onset atrial fibrillation; with rapid ventricular response at ~136 bpm present on admission heart rate is better controlled 102/min. Blood pressure in permissive hypertensive range. We will not start full anticoagulation until 3 days after this acute event per [facility] teleneurology recommendations. Started on low-dose metoprolol 12.5 mg twice daily not to adversely affect his BP. Will give IV digoxin with an aim to maintain heart rate less than 100 bpm without adversely impacting blood pressure. TSH normal. 03/17: Bondactor Machine Operator was consulted as per family, the patient's daughter request. He also opinion that starting anticoagulant 3 days poststroke is optimal time. Eliquis 5 mg twice daily from tomorrow morning.Metoprolol dose increased to 25 mg twice daily. 03/11; heart rate is controlled in the low 70s. Continue to be A-fib. 3. Chronic tobacco abuse - Tobacco cessation will be strongly encouraged with nicotine patch offered to control cravings. 4. Overweight; BMI of 28 this admission - Weight loss will be recommended. 5. History of lipoma of face - Noted. 6. History of hemangioma - Noted. 7. Osteoarthritis - Give Tylenol as needed. 8. DVT prophylaxis - Lovenox 40 mg subcu daily. Laboratory Results Glucose 121 H, Hemoglobin A1c 5.1, Calcium 9.6, Troponin I High Sens 41, TSH 2.52, POC Glucose 120 H 03/16/24 04:55: Urine Opiates Screen NEGATIVE, Urine Methadone Screen NEGATIVE, Ur Barbiturates Screen NEGATIVE, Ur Phencyclidine Scrn NEGATIVE, Ur Amphetamines Screen NEGATIVE, MDMA (Ecstasy) Screen NEGATIVE, U Benzodiazepines Scrn NEGATIVE, Urine Cocaine Screen NEGATIVE, U Cannabinoids Screen POSITIVE H, Ur Drug Screen Comment 03/16/24 06:45: Triglycerides 101, Cholesterol 153, LDL Cholesterol 83, VLDL Cholesterol 20, HDL Cholesterol 50 Clinical Impression(s) from Imaging Studies Brain CT 03/15/24 19:30 IMPRESSION: Negative Brain CT without contrast. Head/Neck CTA 03/15/24 19:30 IMPRESSION: No definite acute large vessel occlusion. Prominent calcified atherosclerosis of both cavernous carotid arteries. Prominent calcified atherosclerosis of both carotid bulbs and proximal ICAs with as much as 50-69% stenosis of both ICA origins. Chest X-Ray 03/15/24 20:12 IMPRESSION: There are findings consistent with COPD. There is no evidence of acute chest disease. Echocardiogram 03/15/24 20:45 Interpretation Summary The estimated ejection fraction is 55 %. Unable to assess diastolic dysfunction. Trivial mitral valve insufficiency. Ordering Physician: Davis Hall Performed By: Niharika Jain RDCS Brain MRI 03/16/24 09:00 IMPRESSION: Moderate size acute left occipital and parietal lobes infarct 1. Moderate acute infarction is present in the anterior to posterior medial aspect of the left occipital lobe extending superiorly into the posterior cortices of the left parietal lobe as well. Charges/Coding Visit Charges Inpatient E&M: 66021 Subs Hosp L2
[2024-03-18] MEDS: Atorvastatin Calcium 40 MG Tablet PO (21:58)
[2024-03-19 00:24] VITALS: BMI 27.2
[2024-03-19 00:25] VITALS: BMI 27.2
[2024-03-19 02:00] VITALS: BP 140/105; PULSE 74; RESP 18; TEMP 36.4; O2SAT 95
--- NOTE | 2024-03-19 05:55 | CDU_ITS ---
Reason For Study: Stroke Rt. Velocities/BP Lt. Velocities/BP Prox CCA 57.9/22 cm/sec. Prox CCA 63.9/9.9 cm/sec. Mid CCA 77.8/27.7 cm/sec. Mid CCA 57.8/17.7 cm/sec. Dist CCA 73/21.1 cm/sec. Dist CCA 44.7/12.5 cm/sec. Prox ICA 40.5/14.8 cm/sec. Prox ICA 57/23.8 cm/sec. Mid ICA 50.9/18.6 cm/sec. Mid ICA 56.1/15.1 cm/sec. Dist ICA 67.5/26.7 cm/sec. Dist ICA 51.7/18.6 cm/sec. Rt. ICA/CCA = 0.87. Lt. ICA/CCA = 0.99. Prox ECA 30.9/7.2 cm/sec. Prox ECA 47.4/7.2 cm/sec. Rt. Vert. 63.9/22.9 cm/sec. Lt. Vert. 28.9/14.8 cm/sec. Right Extracranial There is homogeneous, smooth atherosclerotic plaque noted in the right common carotid artery. There is heterogeneous, irregular atherosclerotic plaque noted in the right internal carotid artery. There is heterogeneous, irregular atherosclerotic plaque noted in the right external carotid artery. Antegrade flow is noted in the right vertebral artery. Left Extracranial There is homogeneous, smooth atherosclerotic plaque noted in the left common carotid artery. There is heterogeneous, irregular atherosclerotic plaque noted in the left internal carotid artery. There is heterogeneous, irregular atherosclerotic plaque noted in the left external carotid artery. Antegrade flow is noted in the left vertebral artery. Procedure Carotid Duplex 49526. This is a Carotid Duplex examination using B-mode, color flow and specral Doppler. Exam performed portable in patient room. VL/Carotid Duplex Ultrasound Interpretation Summary Mild (<50%) stenosis right extracranial internal carotid. Mild (<50%) stenosis left extracranial internal carotid. Patent and antegrade vertebrals bilaterally. Ordering Physician: Alejandro Velasquez Referring Physician: Charito Bell Performed By: Rose Araujo RVT
[2024-03-19 08:00] VITALS: BP 158/91; PULSE 85; RESP 16; TEMP 35.9; O2SAT 99
--- NOTE | 2024-03-19 10:18 | CASEMGMT ---
Discharge Planning A list of HH providers including quality and resource use data and consistent with the patient's preferred geographic region, medical needs, and insurance network was created in [employer] Guide.? This list was provided to the Eladia Lopes Discharge Planning Asst.
[2024-03-19 10:31] VITALS: BP 159/92; PULSE 76
[2024-03-19] MEDS: Metoprolol Tartrate 25 MG Tablet PO (10:31)
[2024-03-19] MEDS: APIXABAN 5 MG TABLET PO (10:31)
[2024-03-19] MEDS: 0.9% Saline Lock 10 ML Syringe IV (10:33)
[2024-03-19] MEDS: Lisinopril 10 MG Tablet PO (10:35)
--- NOTE | 2024-03-19 10:35 | PCM.DC ---
Discharge Instructions Diet Discharge Diet: No restrictions Activity Discharge Activity: Return to Normal Activity Weight Bearing Status: Weight bearing as tolerated Dressing / Incision Call your doctor if you observe: Fever of 101 or Higher, Coldness, Increased Pain, Numbness or Tingling, Change in Color, Inability to urinate, Inability to have a bowel movement, Shortness of breath, Dizziness, Fainting spells, Swelling in the ankles, Chest pain, Prolonged hiccupping, Increased palpitations (irregular heartbeat) and Calf discomfort Follow Up Care When: IN 2 WEEKS Test Results: Test results from this visit will be discussed in further detail at your follow-up appointment, if applicable. Discharge Plan Admission Admit Date/Time: 03/15/24 20:37 Primary Reason for Your Visit: Left parietal/occipital ischemic stroke Attending Provider: Alejandro Velasquez Primary Care Provider: Charito Bell Consulting Providers: Pancho Riggs; Ramiro Najera; Ana Paez; Chelsie Negrete; Melinda Garcia; Nima Aguirre; Deepa Kilgore; Nicholas Green; Maciej Ballard; Madison Kirby; Jorge Tirado; Janny Gore; Berhane Sheth; Anna Chow; Julio Cesar Tobar; Alfonso Ledesma; Romel Luevano; Joyce Callahan; Ortiz Fermin; Davis Hall; Octaviano Lance; Tonio Rick Instructions Additional Instructions / Restrictions: Outpatient physical occupational and speech therapy Patient can follow-up with neurologist outpatient, Dr. Nolan Dupree if he does not get early appointment with Dr. Downing. Discharge Orders/Prescriptions Prescriptions: New atorvastatin 40 mg Tablet 40 mg PO QHS 30 Days Qty: 30 3RF nicotine 14 mg/24 hr Patch 24 Hour 14 mg transdermal DAILY Qty: 0 0RF Eliquis 5 mg tablet 5 mg PO BID 30 Days Qty: 60 3RF lisinopril 10 mg Tablet 10 mg PO BID 30 Days Qty: 60 2RF Rx Instructions: Hold for SBP less than 130 mmHg metoprolol tartrate 25 mg Tablet 25 mg PO BID 30 Days Qty: 60 3RF Rx Instructions: Hold for heart less than 50 or systolic blood pressure less than 130 mmHg. Continued amlodipine 5 MG tablet 10 mg PO DAILY Referrals / Follow Up: Tonio Rick MD [Med Staff - Active Staff] - Within 1 Month Octaviano Lance MD [Med Staff - Active Staff] - Within 2 Weeks Eugenio Downing MD [Non-Staff -Ordering Privileges] - Within 1 Month Charito Bell NP-C [Primary Care Provider] - Within 2 Weeks Disposition Disposition (needs filled in before D/C Order can be placed): Home Health Service
--- NOTE | 2024-03-19 11:55 | PN.HOSP_ITS ---
Reason for Visit Reason for Visit: Diagnoses Hemangioma unspecified site (03/15/24) Nicotine dependence, unspecified, uncomplicated (03/15/24) Unspecified atrial fibrillation (03/15/24) Cerebral infarction, unspecified (03/15/24) Elevated blood-pressure reading, without diagnosis of hypertension (03/15/24) Localized swelling, mass and lump, head (03/15/24) Aphasia (03/15/24) Objective Data Objective Data Vital Signs: Vital Signs Temp Pulse Resp BP Pulse Ox O2 Del Method 97.6 F L 76 18 159/92 H 95 Room Air 03/19/24 02:00 03/19/24 10:31 03/19/24 02:00 03/19/24 10:03/19/24 02:00 03/19/24 07:50 Oxygen Delivery Method Room Air Weight: 201 lb 0.985 oz Body Mass Index (BMI) 27.2 Intake & Output: Intake and Output for Last 24 Hours 03/17/24 03/18/24 03/19/24 23:59 23:59 23:59 Intake Total 175 / 175 0 / 120 360 / 360 Output Total 0 / 0 Balance 175 / 175 0 / 120 360 / 360 Lab / Micro Data 03/18/24 10:00 03/18/24 10:00 Rhythm Strip Rhythm Strip: A-fib Rate: 55 Ectopy: None Physical Exam Narrative Seen and examined. Patient motor part of verbalization is improving. Patient felt mild improvement on the right peripheral field of vision. Patient understands the speech. A-fib on the monitor Physical exam General: Alert, Oriented x3, Cooperative HEENT: right peripheral field of vision better but still not normal. Chronic diminished acuity of vision with finger counting. Atraumatic, PERRLA, EOMI, Normocephalic Oral: No dysphagia. No Gingival or Mucosal Lesions/ Ulcerations Neck: Supple, No JVD, Negative Carotid Bruits Chest wall/Lungs: Air entry diminished in bilateral lung bases. No crepitation/rhonchi Cardiovascular: Regular rate, Regular Rhythm, Normal S1, Normal S2, No M/G/R Abdomen: Bowel Sounds Present, Soft, Non Tender, Non-Distended : No dysuria. No renal angle tenderness. No suprapubic tenderness. Extremities: No edema, Capillary Refill Less than 3 Seconds Skin: No rashes, No breakdown Musculoskeletal: No Tenderness to Palpation of Joints or Extremities Neurological: Cranial nerves II-XII grossly intact, DTR 2+. Muscle strength 5/5 at major joints. His speech is improving. Psych/Mental Status: Normal Affect, Appropriate. Assessment & Plan Assessment/Plan (1) Combined receptive and expressive aphasia due to acute cerebrovascular accident (CVA): (2) Atrial fibrillation with RVR: (3) Elevated blood pressure reading: (4) Smoker: (5) Hemangioma: QUALIFIERS: Hemangioma site: unspecified site Qualified Code(s): D18.00 - Hemangioma unspecified site PLAN: Plan 69-year-old gentleman was admitted for severe expressive aphasia that is started about 3 PM to 4 PM yesterday as told by patient different provider patient not candidate for TNK as LK W unknown 1. Acute CVA affecting medial aspect of left occipital and parietal lobe involving Broca speech area with CT evidence of ~50 to 69% stenosis of both ICA origins with calcified atherosclerosis of both cavernous carotid arteries probably cardioembolic ischemic stroke due to A-fib- Admit to PCU for treatment under the stroke protocol. Patient was not a TNK candidate due to uncertain time of his symptom onset. Patient on baby aspirin and high intensity statin. Fasting profile shows LDL 83, HDL 50. Triglycerides 101. A1c 5.1. Troponin negative. Glucose 120. Patient had echo done EF 55% with negative bubble contrast study. MRI brain shows moderate acute infarction of the anterior to posterior medial aspect of left occipital lobe and left parietal lobe. Patient was evaluated by the [facility] teleneurologist. Recommended changing baby aspirin to Eliquis after 3 days. BP and glucose control as per stroke guidelines. PT OT and speech evaluation to continue. Outpatient vascular surgery follow-up for moderate bilateral carotid stenosis. 03/17: ED physician after discussion with [facility] teleneurologist at time of admission, H&P and teleneurologist yesterday mentioned 3 days before starting anticoagulant for A-fib. Yesterday on 03/16, by mistake he wrote in his note to start Eliquis 5 days post a stroke. I called Dr. Chow and confirmed that starting anticoagulant, Eliquis after 3 days poststroke. This was further communicated to mixing tumbler operator Dr. Octaviano Lance. BP was elevated 168/97, 183/153 therefore lisinopril 5 mg given and blood pressure improved to 140/107 that is optimal after 2 days poststroke. Monitor BP and titrate antihypertensive medication. After repeat PT evaluation is upon that patient has difficulty in following command possible mild cognitive deficit, unsteady, sometimes difficult in initiation, planning and execution of movement and therefore recommended SNF. 03/18: BP was high at 168/110. Extra afternoon dose of lisinopril 5 mg was given and blood pressure profile better. Most recent 140/105. 2. Apparently new-onset atrial fibrillation; with rapid ventricular response at ~136 bpm present on admission heart rate is better controlled 102/min. Blood pressure in permissive hypertensive range. We will not start full anticoagulation until 3 days after this acute event per [facility] teleneurology recommendations. Started on low-dose metoprolol 12.5 mg twice daily not to adversely affect his BP. Will give IV digoxin with an aim to maintain heart rate less than 100 bpm without adversely impacting blood pressure. TSH normal. 03/17: Manager Investment was consulted as per family, the patient's daughter request. He also opinion that starting anticoagulant 3 days poststroke is optimal time. Eliquis 5 mg twice daily from tomorrow morning.Metoprolol dose increased to 25 mg twice daily. 03/11; heart rate is controlled in the low 70s. Continue to be A-fib. 3. Chronic tobacco abuse - Tobacco cessation will be strongly encouraged with nicotine patch offered to control cravings. 4. Overweight; BMI of 28 this admission - Weight loss will be recommended. 5. History of lipoma of face - Noted. 6. History of hemangioma - Noted. 7. Osteoarthritis - Give Tylenol as needed. 8. DVT prophylaxis - Lovenox 40 mg subcu daily. Laboratory Results Glucose 121 H, Hemoglobin A1c 5.1, Calcium 9.6, Troponin I High Sens 41, TSH 2.52, POC Glucose 120 H 03/16/24 04:55: Urine Opiates Screen NEGATIVE, Urine Methadone Screen NEGATIVE, Ur Barbiturates Screen NEGATIVE, Ur Phencyclidine Scrn NEGATIVE, Ur Amphetamines Screen NEGATIVE, MDMA (Ecstasy) Screen NEGATIVE, U Benzodiazepines Scrn NEGATIVE, Urine Cocaine Screen NEGATIVE, U Cannabinoids Screen POSITIVE H, Ur Drug Screen Comment 03/16/24 06:45: Triglycerides 101, Cholesterol 153, LDL Cholesterol 83, VLDL Cholesterol 20, HDL Cholesterol 50 Clinical Impression(s) from Imaging Studies Brain CT 03/15/24 19:30 IMPRESSION: Negative Brain CT without contrast. Head/Neck CTA 03/15/24 19:30 IMPRESSION: No definite acute large vessel occlusion. Prominent calcified atherosclerosis of both cavernous carotid arteries. Prominent calcified atherosclerosis of both carotid bulbs and proximal ICAs with as much as 50-69% stenosis of both ICA origins. Chest X-Ray 03/15/24 20:12 IMPRESSION: There are findings consistent with COPD. There is no evidence of acute chest disease. Echocardiogram 03/15/24 20:45 Interpretation Summary The estimated ejection fraction is 55 %. Unable to assess diastolic dysfunction. Trivial mitral valve insufficiency. Ordering Physician: Davis Hall Performed By: Niharika Jain MINH Brain MRI 03/16/24 09:00 IMPRESSION: Moderate size acute left occipital and parietal lobes infarct 1. Moderate acute infarction is present in the anterior to posterior medial aspect of the left occipital lobe extending superiorly into the posterior cortices of the left parietal lobe as well. Charges/Coding Visit Charges Inpatient E&M: 66928 Subs Hosp L2
--- NOTE | 2024-03-19 12:45 | CASEMGMT ---
YESSY DEMPSEY in to discuss discharge planning, daughter at bedside. Daughter expresses concerns regarding patient discharging to home as he lives by himself. YESSY DEMPSEY reviewed progress with therapy with patient and daughter. Patient is ambulating 200ft contact guard with therapy. YESSY DEMPSEY explained insurance and that patient would not be approved for SNF at discharge, daughter and patient upset but understanding of insurance benefits. YESSY DEMPSEY explained HHC to patient and daughter and are agreeable to HHC at discharge. List of HHC provided to patient and daughter and would like [facility]. YESSY DEMPSEY made referral and awaiting acceptance. CM will continue to follow this patient and plan for a safe discharge.
--- NOTE | 2024-03-19 13:37 | CASEMGMT ---
Addendum entered by Paulina Gleason 03/19/24 14:31: Social Work Pt met w/CM and did want to complete LW/POA. SW assisted pt in completing LW/POA, gave pt originals and copies, and copies were placed on the chart. CARLEY Ambrose Original Note: Social Work Pt has not completed LW/POA documents, declined additional information. TETE AmbroseS
[2024-03-19 13:59] VITALS: BMI 27.2
[2024-03-19 14:00] VITALS: BP 150/86; PULSE 82; RESP 18; TEMP 36.1; O2SAT 100
[2024-03-19 14:01] VITALS: BMI 27.2
--- NOTE | 2024-03-19 14:04 | PCM.DC.SUM ---
Providers Date of Admission: 03/15/24 Date of Discharge: 03/19/24 Primary Care Physician: CYNTHIA Weber Consultations 03/15/24 21:15 Consult: Tele-Neurology Routine Consulting Provider: [facility] Reason for Consult: Acute Ischemic Stroke/TIA EMERGENT Consult: No MD Notified: Yes Date Notified: 03/15/24 Time Notified: 20:39 Method of Notification: ED Physician Initiated Nursing Unit Staff Notify [facility] of Tele-Neurology Consult: Yes 03/17/24 11:59 Consult: Cardiology Routine Consulting Provider: Octaviano Lance Reason for Consult: Chronic Afib EMERGENT Consult: No MD Notified: Yes Date Notified: 03/17/24 Time Notified: 11:59 Method of Notification: Verbal 03/18/24 07:21 Consult: Vascular Surgery Routine Consulting Provider: Tonio Rick Reason for Consult: B/L Carotid stenosis, Ischemic stroke, afib EMERGENT Consult: No MD Notified: Yes Date Notified: 03/17/24 Time Notified: 16:21 Method of Notification: Verbal Reason For Visit: ACUTE CVA WITH EXPRESSIVE APHASIA AND APPARENTLY Diagnosis Discharge Diagnosis (1) Combined receptive and expressive aphasia due to acute cerebrovascular accident (CVA): Status: Acute Code(s): I63.9 - Cerebral infarction, unspecified; R47.01 - Aphasia (2) Atrial fibrillation with RVR: Status: Acute Code(s): I48.91 - Unspecified atrial fibrillation (3) Elevated blood pressure reading: Status: Acute Code(s): R03.0 - Elevated blood-pressure reading, without diagnosis of hypertension (4) Smoker: Status: Chronic Code(s): F17.200 - Nicotine dependence, unspecified, uncomplicated (5) Hemangioma: Status: Chronic Code(s): D18.00 - Hemangioma unspecified site Qualifiers: Hemangioma site: unspecified site Qualified Code(s): D18.00 - Hemangioma unspecified site Plan 69-year-old gentleman was admitted for severe expressive aphasia that is started about 3 PM to 4 PM yesterday as told by patient different provider patient not candidate for TNK as LK W unknown 1. Acute CVA affecting medial aspect of left occipital and parietal lobe involving Broca speech area with CT evidence of ~50 to 69% stenosis of both ICA origins with calcified atherosclerosis of both cavernous carotid arteries probably cardioembolic ischemic stroke due to A-fib- Admit to PCU for treatment under the stroke protocol. Patient was not a TNK candidate due to uncertain time of his symptom onset. Patient on baby aspirin and high intensity statin. Fasting profile shows LDL 83, HDL 50. Triglycerides 101. A1c 5.1. Troponin negative. Glucose 120. Patient had echo done EF 55% with negative bubble contrast study. MRI brain shows moderate acute infarction of the anterior to posterior medial aspect of left occipital lobe and left parietal lobe. Patient was evaluated by the [facility] telene[facility]ist. Recommended changing baby aspirin to Eliquis after 3 days. BP and glucose control as per stroke guidelines. PT OT and speech evaluation to continue. Outpatient vascular surgery follow-up for moderate bilateral carotid stenosis. 03/17: ED physician after discussion with [facility] at time of admission, H&P and teleneurologist yesterday mentioned 3 days before starting anticoagulant for A-fib. Yesterday on 03/16, by mistake he wrote in his note to start Eliquis 5 days post a stroke. I called Dr. Chow and confirmed that starting anticoagulant, Eliquis after 3 days poststroke. This was further communicated to teacher physically impaired Dr. Octaviano Lance. BP was elevated 168/97, 183/153 therefore lisinopril 5 mg given and blood pressure improved to 140/107 that is optimal after 2 days poststroke. Monitor BP and titrate antihypertensive medication. After repeat PT evaluation is upon that patient has difficulty in following command possible mild cognitive deficit, unsteady, sometimes difficult in initiation, planning and execution of movement and therefore recommended SNF. 03/18: BP was high at 168/110. Extra afternoon dose of lisinopril 5 mg was given and blood pressure profile better. Most recent 140/105.As the day progressed, blood pressure went high, BP 158/91, 159/92 therefore lisinopril dose frequency increased to 10 mg p.o. twice daily with holding parameters, hold for SBP less than 130 mmHg. Prescription for metoprolol 25 mg p.o. twice daily and lisinopril and Eliquis sent to patient's preferred pharmacy. Advised to follow-up with neurologist Dr. Elfego Downing or Nolan Dupree in 1 week. Discharge instruction also given for follow-up with the vascular surgeon Dr. Tonio Rick and teacher physically impaired Dr. Octaviano wu. 2. Apparently new-onset atrial fibrillation; with rapid ventricular response at ~136 bpm present on admission heart rate is better controlled 102/min. Blood pressure in permissive hypertensive range. We will not start full anticoagulation until 3 days after this acute event per [facility] recommendations. Started on low-dose metoprolol 12.5 mg twice daily not to adversely affect his BP. Will give IV digoxin with an aim to maintain heart rate less than 100 bpm without adversely impacting blood pressure. TSH normal. 03/17: Second Butler was consulted as per family, the patient's daughter request. He also opinion that starting anticoagulant 3 days poststroke is optimal time. Eliquis 5 mg twice daily from tomorrow morning.Metoprolol dose increased to 25 mg twice daily. 03/19; heart rate is controlled in the low 70s. Continue to be A-fib. Rest as mentioned above 3. Chronic tobacco abuse - Tobacco cessation will be strongly encouraged with nicotine patch offered to control cravings. 4. Overweight; BMI of 28 this admission - Weight loss will be recommended. 5. History of lipoma of face - Noted. 6. History of hemangioma - Noted. 7. Osteoarthritis - Give Tylenol as needed. 8. DVT prophylaxis - Lovenox 40 mg subcu daily. Discharge medication reconciliation done. Discharge follow-up instructions completed. Discharge process discussed with the patient and all questions were answered to patient's satisfaction. Follow with PCP in 1 to 2 weeks Total time spent, exact 35 minutes on discharge meds reconciliation, examination, coordination of care with nurses and ancillary staff, review of imaging and blood test and discussion with the patient on follow-up instructions. Laboratory Results Glucose 121 H, Hemoglobin A1c 5.1, Calcium 9.6, Troponin I High Sens 41, TSH 2.52, POC Glucose 120 H 03/16/24 04:55: Urine Opiates Screen NEGATIVE, Urine Methadone Screen NEGATIVE, Ur Barbiturates Screen NEGATIVE, Ur Phencyclidine Scrn NEGATIVE, Ur Amphetamines Screen NEGATIVE, MDMA (Ecstasy) Screen NEGATIVE, U Benzodiazepines Scrn NEGATIVE, Urine Cocaine Screen NEGATIVE, U Cannabinoids Screen POSITIVE H, Ur Drug Screen Comment 03/16/24 06:45: Triglycerides 101, Cholesterol 153, LDL Cholesterol 83, VLDL Cholesterol 20, HDL Cholesterol 50 Clinical Impression(s) from Imaging Studies Brain CT 03/15/24 19:30 IMPRESSION: Negative Brain CT without contrast. Head/Neck CTA 03/15/24 19:30 IMPRESSION: No definite acute large vessel occlusion. Prominent calcified atherosclerosis of both cavernous carotid arteries. Prominent calcified atherosclerosis of both carotid bulbs and proximal ICAs with as much as 50-69% stenosis of both ICA origins. Chest X-Ray 03/15/24 20:12 IMPRESSION: There are findings consistent with COPD. There is no evidence of acute chest disease. Echocardiogram 03/15/24 20:45 Interpretation Summary The estimated ejection fraction is 55 %. Unable to assess diastolic dysfunction. Trivial mitral valve insufficiency. Ordering Physician: Davis Hall Performed By: Niharika Jain RDCS Brain MRI 03/16/24 09:00 IMPRESSION: Moderate size acute left occipital and parietal lobes infarct 1. Moderate acute infarction is present in the anterior to posterior medial aspect of the left occipital lobe extending superiorly into the posterior cortices of the left parietal lobe as well. Medications at Discharge Home Medications amlodipine 5 mg tablet 10 mg PO DAILY bp 07/25/21 apixaban 5 mg tablet (Eliquis) 5 mg PO BID 1 month #60 tabs 03/17/24 atorvastatin 40 mg tablet 40 mg PO QHS 30 days #30 tabs 03/17/24 nicotine 14 mg/24 hr daily transdermal patch 14 mg transdermal DAILY #0 ea 03/17/24 lisinopril 10 mg tablet 10 mg PO BID 30 days #60 tabs 03/19/24 metoprolol tartrate 25 mg tablet 25 mg PO BID 1 month #60 tabs 03/19/24 Physical Exam Narrative Please see progress note for the physical exam done on the day of discharge. Weight / BMI Weight Weight: 201 lb 0.985 oz Body Mass Index (BMI) 27.2 ABG / Lab / Microbiology Data 03/18/24 10:00 03/18/24 10:00 D/C Instructions Discharge Diet: No restrictions Weight Bearing Status: Weight bearing as tolerated Call your doctor if you observe: Fever of 101 or Higher, Coldness, Increased Pain, Numbness or Tingling, Change in Color, Inability to urinate, Inability to have a bowel movement, Shortness of breath, Dizziness, Fainting spells, Swelling in the ankles, Chest pain, Prolonged hiccupping, Increased palpitations (irregular heartbeat) and Calf discomfort When: IN 2 WEEKS Meaningful Use Info Meaningful Use Meaningful Use Diagnoses (Choose all that apply): Ischemic CVA CVA Therapy Assessed for PT,OT and/or ST?: Yes Ischemic Stroke Antithrombotic order at d/c?: Yes Dx of Atrial fib/flutter?: Yes Anticoagulant at discharge?: Yes Statin Dosing Therapy Reference: STATIN DOSE THERAPY REFERENCE: * Patients > 75 years receive moderate or high dose statin therapy. * Patients 75 years or YOUNGER should receive HIGH intensity statin dose unless contraindicated. You will be required to document reason for non-treatment if statin daily dose does not meet guidelines. HIGH DOSE STATIN THERAPY DAILY Atorvastatin > than or = to 40 mg Rosuvastatin > than or = to 20 mg Amlodipine + Atorvastatin > than or = to 2.5/40 mg Ezetimibe + Simvastatin 10/80 mg Simvastatin 80mg Statins at discharge?: Yes If patient is 75 or younger, pt will be discharged on HIGH intensity statin.: Yes Primary Dx Acute Ischemic CVA?: Yes Discharge Plan Admission Admit Date/Time: 03/15/24 20:37 Primary Reason for Your Visit: Left parietal/occipital ischemic stroke Attending Provider: Alejandro Velasquez Primary Care Provider: Charito Bell Consulting Providers: Pancho Riggs; Ramiro Najera; Ana Paez; Chelsie Negrete; Melinda Garcia; Nima Aguirre; Deepa Kilgore; Nicholas Green; Maciej Ballard; Madison Kirby; Jorge Tirado; Janny Gore; Berhane Sheth; Anna Chow; Julio Cesar Tobar; Alfonso Ledesma; Romel Luevano; Joyce Callahan; Ortiz Fermin; Davis Hall; Octaviano Lance; Tonio Rick Instructions Additional Instructions / Restrictions: Outpatient physical occupational and speech therapy Patient can follow-up with neurologist outpatient, Dr. Nolan Dupree if he does not get early appointment with Dr. Downing. Discharge Orders/Prescriptions Prescriptions: New atorvastatin 40 mg Tablet 40 mg PO QHS 30 Days Qty: 30 3RF nicotine 14 mg/24 hr Patch 24 Hour 14 mg transdermal DAILY Qty: 0 0RF Eliquis 5 mg tablet 5 mg PO BID 30 Days Qty: 60 3RF lisinopril 10 mg Tablet 10 mg PO BID 30 Days Qty: 60 2RF Rx Instructions: Hold for SBP less than 130 mmHg metoprolol tartrate 25 mg Tablet 25 mg PO BID 30 Days Qty: 60 3RF Rx Instructions: Hold for heart less than 50 or systolic blood pressure less than 130 mmHg. Continued amlodipine 5 MG tablet 10 mg PO DAILY Referrals / Follow Up: Tonio Rick MD [Med Staff - Active Staff] - Within 1 Month Octaviano Lance MD [Med Staff - Active Staff] - Within 2 Weeks Eugenio Downing MD [Non-Staff -Ordering Privileges] - Within 1 Month Charito Bell NP-C [Primary Care Provider] - Within 2 Weeks Disposition Disposition (needs filled in before D/C Order can be placed): Home Health Service Charges/Coding Visit Charges Inpatient E&M: 58010 Disch Hosp >30min
--- NOTE | 2024-03-19 14:35 | CASEMGMT ---
YESSY DEMPSEY received call back from [facility], patient accepted and will have start of care for tomorrow. Patient has deductible of $1364.48 that will have to be paid and then insurance with cover 80% Patient discharging on Eliquis, YESSY DEMPSEY called [facility] and copay is $25. YESSY DEMPSEY in to patient's room to update regarding [facility] start of care, deductible, and provided Eliquis savings card. Daughter voiced appreciation and had no further questions or concerns.
--- NOTE | 2024-03-19 15:47 | PHA.DC_ITS ---
Pharmacy [facility] has performed discharge medication reconciliation and counseling for this patient. 1. LISINOPRIL INCREASED TO 10MG BID 2. ATORVASTATIN 40MG PO QHS 3. APIXABAN 5MG PO BID 4. METOPROLOL TARTRATE 25MG PO BID 5. 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 The patient was counseled on the following discharge medications and changes in medications for homegoing were reviewed. The Reason for Use, instructions for use, and potential side effects were reviewed for all new medications. The patient's questions regarding all of their medications were answered. The patient was able to verbally demonstrate an understanding of their discharge medications. Medications at Discharge Home Medications amlodipine 5 mg tablet 10 mg PO DAILY bp 07/25/21 apixaban 5 mg tablet (Eliquis) 5 mg PO BID 1 month #60 tabs 03/17/24 atorvastatin 40 mg tablet 40 mg PO QHS 30 days #30 tabs 03/17/24 nicotine 14 mg/24 hr daily transdermal patch 14 mg transdermal DAILY #0 ea 03/17/24 lisinopril 10 mg tablet 10 mg PO BID 30 days #60 tabs 03/19/24 metoprolol tartrate 25 mg tablet 25 mg PO BID 1 month #60 tabs 03/19/24
[2024-03-19 16:19] VITALS: BP 159/103; PULSE 62; RESP 18; TEMP 36; O2SAT 99
--- NOTE | 2024-03-20 08:52 | CASEMGMT ---
SHEKHAR received a voice mail from YESSY Arana CM with [employer]. Yasmeen wanted to know if patient was making his own decisions or if he had a power of prosecuting attorney. SHEKHAR called Yasmeen back and left her a voice mail letting her know patient was making his own decisions. SHEKHAR also notified Yasmeen that SW completed Healthcare Power of Valuer and Healthcare Living Will with patient naming his daughter Sara as his Healthcare Power of Valuer. Chari DU
== END 2024-03-19 16:28 | disposition home health service (06) | DRG 66 ==
LOC: ED 20:38 → PCU 20:48
PROVIDERS: Admitting Provider Internal Medicine; Emergency Provider Emergency Medicine; PCP Nurse Practitioner Family; Visit Provider Internal Medicine
DX: I63.89 Other cerebral infarction (principal); R47.01 Aphasia; I48.91 Unspecified atrial fibrillation; F17.210 Nicotine dependence, cigarettes, uncomplicated; E66.3 Overweight; I65.23 Occlusion and stenosis of bilateral carotid arteries; I10 Essential (primary) hypertension; M19.90 Unspecified osteoarthritis, unspecified site; R29.704 NIHSS score 4; Z68.28 Body mass index [BMI] 28.0-28.9, adult
CPT/HCPCS: 36415; 70450; 70496; 70498; 70551; 71045; 80048; 80061; 80307; 82962; 83036; 84443; 84484; 85025; 85610; 85730; 92507; 92523; 93005; 93306; 93880; 94762; 97110; 97116; 97129; 97130; 97162; 97166; 97530; 97535; 97802; 99285; A4216

== ENCOUNTER 2024-03-22 07:04 | Emergency (ER) | payer BC, SELFPAY ==
[2024-03-22 07:04] VITALS: BP 160/122
[2024-03-22 07:05] VITALS: BP 160/122; PULSE 72; RESP 19; TEMP 36.8; O2SAT 98; BMI 27.8
--- NOTE | 2024-03-22 07:23 | RAD_ITS ---
EXAM: XR CHEST, 2 VIEWS CLINICAL INDICATION: Chest pain. TECHNIQUE: Frontal and lateral views of the chest. COMPARISON: 03/15/2024. FINDINGS: LUNGS AND PLEURAL SPACES: Unremarkable. No consolidation or edema. No pneumothorax. No effusion. HEART: Unremarkable. Cardiac silhouette not enlarged. MEDIASTINUM: Central airways and mediastinal contour are unremarkable. BONES/JOINTS: Unremarkable. No acute fracture. SOFT TISSUES: Unremarkable. RAD/Chest PA and Lateral IMPRESSION: No radiographic evidence of acute cardiopulmonary disease and unchanged. Electronically Signed: Kennedy Sheth MD at 8:21 EDT ,
--- NOTE | 2024-03-22 07:24 | EDS_ITS ---
HPI History of Present Illness Chief Complaint: Chest Pain Informant: patient Narrative Narrative: Patient is a 69-year-old male with history of recent stroke with subsequent expressive aphasia as well as new onset atrial fibrillation (now currently on Eliquis and metoprolol) in addition to hypertension presenting for an episode of chest pain. Patient states he woke up and developed chest pain in the left side of his chest. States it does not radiate. Describes it as a sore sensation. I see his last for about 5 seconds. Denies any associated diaphoresis, nausea, vomiting or shortness of breath. States he was in his normal state of health last night. Called EMS and was transferred here. Patient is never had chest pain like this before. He states he thinks it might be anxiety related as this is the first day he is by himself (his daughter has been helping him out since his recent stroke and he lives home alone). Denies any swelling of his legs. No other complaints or concerns reported at this time. [facility] Medical History Atrial fibrillation Stroke Hypertension Home Medications ?Medication ?Instructions ?Recorded ?Last Taken ?Type apixaban 5 mg tablet (Eliquis) 5 mg PO BID 1 month #60 tabs 03/17/24 Unknown Rx atorvastatin 40 mg tablet 40 mg PO QHS 30 days #30 tabs 03/17/24 Unknown Rx nicotine 14 mg/24 hr daily 14 mg transdermal DAILY #0 ea 03/17/24 Unknown Rx transdermal patch lisinopril 10 mg tablet 10 mg PO BID 30 days #60 tabs 03/19/24 Unknown Rx metoprolol tartrate 25 mg tablet 25 mg PO BID 1 month #60 tabs 03/19/24 Unknown Rx amlodipine 10 mg tablet 10 mg PO DAILY 03/22/24 Unknown History Allergy/AdvReac Type Severity Reaction Status Date / Time No Known Allergies Allergy Verified 03/15/24 19:36 Family History Unknown No problems noted. Brother CAD (coronary artery disease) Social History Smoking Status: Current every day smoker tobacco type: cigarettes alcohol intake: current substance use type: does not use additional social history: DOES USE ASPIRIN NEEDED DOES USE IBUPROFEN NEEDED ROS ROS ED Constitutional Constitutional ED: Denies chills or fever(s) Eyes Eyes: Denies change in vision Cardiovascular Cardiovascular: Reports as per HPI and chest pain; Denies palpitations Respiratory/Chest Respiratory/Chest: Denies cough or dyspnea Gastrointestinal Gastrointestinal: Denies abdominal pain, nausea or vomiting Genitourinary Genitourinary ED: Denies dysuria Integumentary Denies rash Neurologic Neurologic: Denies headache(s) or weakness Psychiatric Psychiatric: Reports anxiety Hematologic/Lymphatic Hematologic/Lymphatic: Reports easy bleeding EXAM Physical Exam Const Vital Signs: 03/22/24 07:04 03/22/24 07:05 03/22/24 07:10 Temperature 98.2 F Temperature Source Oral Pulse Rate 72 Respiratory Rate 19 H Respiratory Effort Normal Non-Labored Blood Pressure 160/122 H 160/122 H Blood Pressure Mean 134 134 Pulse Ox 98 Oxygen Delivery Method Room Air Room Air 03/22/24 07:23 03/22/24 08:04 03/22/24 09:00 Temperature Temperature Source Pulse Rate 58 L 59 L Respiratory Rate 18 16 Respiratory Effort Blood Pressure 151/93 H 138/82 H Blood Pressure Mean 112 100 Pulse Ox 100 95 Oxygen Delivery Method Room Air Room Air Room Air 03/22/24 10:00 Temperature Temperature Source Pulse Rate 58 L Respiratory Rate 16 Respiratory Effort Blood Pressure 151/108 H Blood Pressure Mean 122 Pulse Ox 98 Oxygen Delivery Method Room Air Positive well nourished and well developed General Appearance ED: well developed and NAD HEENT Reports moist mucous membranes Eyes PERRL Neck supple and no JVD Chest Wall inspection of chest normal and palpation of chest normal Chest: Negative for tenderness Resp normal respiratory effort and clear to auscultation bilaterally Cardio regular rate and no murmurs Rhythm: abnormal rhythm irregularly irregular Peripheral Pulses: radial pulses present GI normal to inspection, nondistended, normoactive bowel sounds, soft to palpation and non-tender Extremity normal to inspection General Extremety ED: Negative for edema General Extremity: Negative for edema Neuro oriented x3 and CN's II-XII intact bilaterally Neuro Narrative: Patient has slight expressive aphasia however he is able to communicate effectively. Sensorium / Orientation: awake and alert Motor Exam: Negative for general weakness Psych mental status grossly normal Skin no rashes or lesions noted and no wounds Heart Score History: Slightly/Non-Suspicious Age: >/= 65 years Risk Factors: >/= 3 Risk Factors or History of CAD Troponin: </= Normal Limit Score: 4 MDM MDM MDM Narrative Medical decision making narrative: Patient is evaluated for an episode of chest pain that occurred this morning. Currently chest pain-free. Differential diagnosis includes ACS, skeletal chest pain, anxiety reaction, A- fib with RVR, arrhythmia, pneumonia and pneumothorax. Workup largely normal. EKG shows atrial fibrillation with nonspecific changes but no acute process. No acute ischemic changes. High-sensitivity troponin is negative x 2. Patient is no further chest pain in the ER. Lab work otherwise normal. Patient is mildly hypertensive in the ER however he has not taken his morning blood pressure medicine. Is instructed to take his medicine when he gets home. I will follow-up outpatient as already scheduled with cardiology. Patient thinks he might of had an anxiety attack. I did discuss that as well it is possible I cannot definitively rule in or rule this out however at this time I do not think there is an acute emergent process and I do not think he requires to be admitted back to the hospital. Patient is agreeable this plan of care. He does feel comfortable going home. History & Record Review Additional record(s) reviewed:: Prior inpatient record (Patient had recent hospitalization 12/16 through 12/20 for acute ischemic stroke affecting medial aspect of the left occipital parietal lobe. Had echocardiogram which showed EF 55%. Was started on Eliquis for new onset of atrial fibrillation.) Lab Data Attestation: I reviewed the patient's lab results. Labs: Laboratory Results - last 24 hr 03/22/24 03/22/24 06:57 09:50 WBC 7.6 RBC 5.29 Hgb 15.6 Hct 50.8 MCV 96.0 H MCH 29.5 MCHC 30.7 L RDW Std Deviation 49.6 H RDW Coeff of Nico 14.1 Plt Count 143 L MPV 14.1 H Immature Gran % (Auto) 0.400 Neut % (Auto) 61.8 Lymph % (Auto) 21.9 Parmer % (Auto) 12.5 H Eos % (Auto) 2.6 Baso % (Auto) 0.8 Absolute Neuts (auto) 4.7 Absolute Lymphs (auto) 1.67 Nucleated RBC % 0 Sodium 140 Potassium 4.1 Chloride 113 H Carbon Dioxide 28.0 Anion Gap -1 L BUN 26 H Creatinine 1.06 Estim Creat Clear Calc 73.21 Est GFR (MDRD) Af Amer 89 Est GFR (MDRD) Non-Af 74 BUN/Creatinine Ratio 24.5 H Glucose 90 Calcium 9.0 Troponin I High Sens 41 36 Radiography Chest X-Ray - ED: 2 View, Read by ED Physician, Read by Radiologist and No Acute Disease Diagnostic Testing: Clinical Impression(s) from Imaging Studies Chest X-Ray 03/22/24 07:23 IMPRESSION: No radiographic evidence of acute cardiopulmonary disease and unchanged. Electronically Signed: Kennedy Sheth MD at 8:21 EDT , Rhythm Strip Rhythm Strip: A-fib Rate: 52 Ectopy: None EKG Initial EKG: Attestation: I personally reviewed and interpreted this EKG as follows: Interpretation: Atrial Fibrillation Comments: Atrial fibrillation with slow ventricular response at a rate of 52 bpm Normal axis T wave inversions in V4 and V6 with no reciprocal changes Compared to prior EKG patient now is no longer in A-fib with RVR, no Dynamic changes otherwise appreciated. 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, pneumonia Reason(s) pneumonia less likely: Positive for no infiltrate on CXR, no elevation in WBC count, no noted fever and symptoms not consistent with acute infection and CHF Reason(s) CHF less likely: Positive for no significant peripheral edema, no orthopnea and no evidence of fluid overload on CXR Discharge Plan Triage Chief Complaint: Chest Pain ED Provider: Federica Arzate Dx/Rx/DC Orders Clinical Impression: Chest pain of uncertain etiology, Atrial fibrillation by electrocardiogram Instructions: ED Chest Pain, Uncertain Cause Prescriptions: No Action atorvastatin 40 mg Tablet 40 mg PO QHS 30 Days Qty: 30 3RF nicotine 14 mg/24 hr Patch 24 Hour 14 mg transdermal DAILY Qty: 0 0RF Eliquis 5 mg tablet 5 mg PO BID 30 Days Qty: 60 3RF lisinopril 10 mg Tablet 10 mg PO BID 30 Days Qty: 60 2RF Rx Instructions: Hold for SBP less than 130 mmHg metoprolol tartrate 25 mg Tablet 25 mg PO BID 30 Days Qty: 60 3RF Rx Instructions: Hold for heart less than 50 or systolic blood pressure less than 130 mmHg. amlodipine 10 mg tablet 10 mg PO DAILY Primary Care Provider: Charito Bell Referrals: Charito Bell, [employer]-C [Primary Care Provider] - Activity Restrictions/Additional Instructions: Please continue to follow-up with cardiology as scheduled. Your workup was largely normal today and I feel it is safe you to go home. Please take your morning medications when you get home. Return to the ER if you have progression or worsening of your symptoms. Print Language: Canadian Disposition Disposition: Home, Self Care
--- NOTE | 2024-03-22 07:30 | EKG12_ITS ---
Test Reason : CP Blood Pressure : / mmHG Vent. Rate : 052 BPM Atrial Rate : 000 BPM P-R Int : 000 ms QRS Dur : 080 ms QT Int : 428 ms P-R-T Axes : 000 019 162 degrees QTc Int : 398 ms Atrial fibrillation with slow ventricular response T wave abnormality, consider anterolateral ischemia Abnormal ECG Confirmed by PIERRE BLANCA, PALMIRA ([id number]), senior technical editor LORENA DIAZ ([id number]) on 03/25/2024 6:48:00 AM Referred By: Confirmed By:PALMIRA JAY MD
[2024-03-22 07:38] LABS: Absolute Lymphocyte Count 1.67 X10^3/uL (0.83-4.51); Absolute Neutrophil Count 4.7 X10^3/uL (2.0-7.7); Basophil# 0.06 X10^3/uL; Basophil% 0.8 % (0-1); Eosinophils% 2.6 % (0-5); Hematocrit 50.8 % (40-54); Hemoglobin 15.6 g/dL (13.0-16.5); Lymphocyte # 1.67 X10^3/ul (0.83-4.51); Lymphocyte % 21.9 % (19-41); Mean Corp Hgb Conc 30.7 g/dL (32-36); Mean Corpuscular Hgb 29.5 pg (27.0-32.0); Mean Platelet Vol. 14.1 fl (6.2-12.0); Monocyte# 0.95 X10^3/uL; Monocyte% 12.5 % (0-10); NRBC Flagged by Analyzer 0 % (0-5); Neutrophil # 4.72 X10^3/uL (2.7-7.7); Neutrophil % 61.8 % (47-70); Platelet Count 143 K/mm3 (150-450); RBC Distribution Width CV 14.1 % (11.6-14.6); RBC Distribution Width SD 49.6 fl (35.1-43.9); Red Blood Count 5.29 M/mm3 (4.6-6.2); White Blood Count 7.6 K/mm3 (4.4-11.0)
[2024-03-22 07:53] LABS: Anion Gap -1 (5-15); BUN 26 mg/dL (7-18); BUN/Creat Ratio 24.5 RATIO (10-20); Chloride 113 mmol/L (98-107); Creatinine, Serum 1.06 mg/dL (0.70-1.30); EST Glomerular Filtration Rate 74 mL/min (>60); Est Glom Filt Rate - Afr Amer 89 mL/min (>60); Estimated Creatinine Clearance 73.21 ml/min; Glucose 90 mg/dL (74-106); Potassium 4.1 mmol/L (3.5-5.1); Sodium Level 140 mmol/L (136-145); Troponin-I HS (w/2H Reflex) 41 pg/mL (3.0-78.0)
[2024-03-22] MEDS: Aspirin 81 MG TAB.CHEW 324 MG PO (08:02)
[2024-03-22 08:04] VITALS: BP 151/93; PULSE 58; RESP 18; O2SAT 100
[2024-03-22 09:00] VITALS: BP 138/82; PULSE 59; RESP 16; O2SAT 95
[2024-03-22 09:32] LABS: Reflex Troponin-HS? (from REC) Y
[2024-03-22 10:00] VITALS: BP 151/108; PULSE 58; RESP 16; O2SAT 98
[2024-03-22 10:14] LABS: Troponin-I HS 36 pg/mL (3.0-78.0)
[2024-03-22 10:55] VITALS: BP 151/108; PULSE 58; RESP 16; TEMP 36.7; O2SAT 98
== END 2024-03-22 10:56 | disposition home or self-care (01) ==
PROVIDERS: Emergency Provider Emergency Medicine; PCP Nurse Practitioner Family; Visit Provider Emergency Medicine
DX: R07.9 Chest pain, unspecified (principal); I48.91 Unspecified atrial fibrillation; I10 Essential (primary) hypertension; Z86.73 Personal history of transient ischemic attack (TIA), and cerebral infarction without residual deficits; Z79.01 Long term (current) use of anticoagulants; Z79.899 Other long term (current) drug therapy; F17.210 Nicotine dependence, cigarettes, uncomplicated
CPT/HCPCS: 71046; 80048; 84484; 85025; 93005; 99284; A4216

== ENCOUNTER 2024-07-18 09:30 | Outpatient (RCR) | payer BC, SELFPAY ==
--- NOTE | 2024-05-09 12:07 | HP.OTEVAL_ITS ---
Patient's Visit Information Visit Information Visit Information: RAMÓN ORTIZ is a 69 year old M, referred to Occupational Therapy by CYNTHIA Weber, with a diagnosis of CVA. Date of Evaluation: 05/09/24 Occupational Therapist: Odalis Ruffin Subjective Subjective: This 69 year old male referred to OT due to CVA Mar 19 2024. Pt has therapy while in hospital for 4 days. No home therapy. pt lives alone and cares for self. Per pt noticed weakness on R side. Pt is R handed. 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 Pt wants to work on balance, endurance, coordination and strength. pt lost peripheral vision after stroke both sides feel equal to pt. pt would like to get well enough in order to return to work Objective Objective/Observation: pt arrives able to complete mobility from waiting room back to therapy room no AD slow gait pattern small steps. ROM ROM Comments: BUE AROM WFL Strength Shoulder: L shoulder flex 16.6# R 17.7# Elbow: bicep L30.2 R 30.4# tricep L23.3 R18.1# Soap Inspector: L 70# R 60# Lateral Pinch: L 12# R 10# Tripod Pinch: L 10# R 10# Edema Other: none Movement Movement Comments: dysmetria normal 5/5 nose to finger B hands reflex able to catch ball 5/5 B hands then unilaterally 5/5 Nine Hole Peg Right: 30 sec Left: 31 sec In-Hand Manipulation Finger to Palm Translation: Normal - Right and Normal - Left Palm to Finger Translation: Normal - Right and Normal - Left Shift: Normal - Right and Normal - Left Quick DASH-Disab of Arm,Shoulder& Hand Quick DASH Score: 29.5450 Goals Goal:: 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 equal to non affected UE (70#) in order to maximize I in IADL tasks and for return to work pt will improve R tricep strength equal to non affected UE (23.3#) in order to maximize I in IADL tasks and for return to work pt will improve BUE shoulder flexion strength by 5# (LUE 16.6 and RUE 17.7) in order to maximize I in IADL tasks and for return to work Goal:: pt will demonstrate/ verbalize 3/3 visual perceptual comp strategies during completion of self care/ work related activities Goal:: pt will improve quick dash score by 5 points or more (29.54) in order to maximize function during day to day tasks Goal:: Per pt report pt will improve overall aerobic capacity to complete sustained manual activity for 3-4 hour duration in order to return to work pt will verbalize/ demonstrate 100% accuracy in UB strengthening HEP by third session Rehabilitation General Assessment: This 69 year old male presents s/p CVA end of February. Pt presents with decreased UB strength RUE affected. Pt presents with decreased overall aerobic capacity. pt goal is to be able to return to work. Pt would benefit from OT services x1 a week for 4-6 weeks in order to regain strength and aerobic capacity for safe return to prior level of function. Rehabilitation Potential: Good Anticipated Interventions Anticipated Interventions: A/AAROM/PROM, Strengthening, Joint Protection/Energy Conservation, Neuro Reeducation, Education re assistive Equipment, Education re Diagnosis and Home Program Visit Plan Frequency: 1x/Week Duration: 4-6 Weeks General Plan: strengthening aerobic capacity joint positioning ed on AE/DME as PRN TEXT: Thank you for the opportunity to evaluate your patient. For Medicare and Medicare HMO plans, please review the plan of care and approve it. It will need to be FAXED BACK to us at [phone] for Medicare purposes. Please let me know if there are questions or concerns regarding this plan of care. Physician Signature: Date:
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
--- NOTE | 2024-07-02 11:03 | OTREVAL_ITS ---
Re-Evaluation Intro: Charito Bell, MAURY-C, It has been my pleasure to treat RAMÓN ORTIZ over the last 10 visits for CVA. Please see the progress note below for an update on the occupational therapy plan of care! Subjective Subjective: arrives doing well no new concerns tired this date from [facility] the [facility]. pt bp at home 151/88 Objective Objective/Function: L shoulder flexion 13.1 L tricep 17.8 L bicep 23.4 L ER 20 R industrial arts teacher 80# L industrial arts teacher 80# R lateral pinch 15 L lateral picnh 12# R tripod 10# L tripod 8# R shoulder flexion 13.6 R tricep 19.5 R bicep 25.6 R ER 17.3 Plan Plan Frequency: 1-2x /Week Duration: 3 Weeks Plan: strengthening aerobic capacity training activity modification work simulation Goals Goals Patient Goals: Regain Strength, Return to Work, Resume Former Household Responsibilities (Cooking,Cleaning,Yard, etc.) and Resume Hobbies Goal:: Pt will improve R industrial arts teacher strength equal to non affected UE (70#) in order to maximize I in IADL tasks and for return to work GOAL MET pt will improve R tricep strength equal to non affected UE (23.3#) in order to maximize I in IADL tasks and for return to work 07/02/24: 19.5 ONGOING pt will improve BUE shoulder flexion strength by 5# (LUE 16.6 and RUE 17.7) in order to maximize I in IADL tasks and for return to work ONGOING Goal:: pt will demonstrate/ verbalize 3/3 visual perceptual comp strategies during completion of self care/ work related activities ONGOING Goal:: pt will improve quick dash score by 5 points or more (29.54) in order to maximize function during day to day tasks GOAL MET now 6.81 Goal:: Per pt report pt will improve overall aerobic capacity to complete sustained manual activity for 3-4 hour duration in order to return to work ONGOING pt will verbalize/ demonstrate 100% accuracy in UB strengthening HEP by third session GOAL MET Anticipated Interventions Anticipated Interventions Anticipated Interventions: A/AAROM/PROM, Strengthening, Joint Protection/Energy Conservation, Neuro Reeducation, Education re assistive Equipment, Education re Diagnosis and Home Program Re-Evaluation Ending Re-evaluation ending: Please do not hesitate to contact me at [phone] by phone or if you have questions or concerns regarding this new plan of care! Sincerely, Odalis Ruffin
--- NOTE | 2024-07-18 10:25 | HP.OTDCSUM ---
Discharge Summary D/C Summary: It has been my pleasure to treat RAMÓN ORTIZ under orders from CYNTHIA Weber, for the diagnosis of CVA for a total of 15 visit(s). Please see the following information for a summary of their discharge status. 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 equal to non affected UE (70#) in order to maximize I in IADL tasks and for return to work GOAL MET pt will improve R tricep strength equal to non affected UE (23.3#) in order to maximize I in IADL tasks and for return to work now 27.6# GOAL MET pt will improve BUE shoulder flexion strength by 5# (LUE 16.6 and RUE 17.7) in order to maximize I in IADL tasks and for return to work GOAL MET Now L 23# R 24# Goal:: pt will demonstrate/ verbalize 3/3 visual perceptual comp strategies during completion of self care/ work related activities GOAL MET Goal:: pt will improve quick dash score by 5 points or more (29.54) in order to maximize function during day to day tasks GOAL MET now 6.81 Goal:: Per pt report pt will improve overall aerobic capacity to complete sustained manual activity for 3-4 hour duration in order to return to work GOAL MET pt will verbalize/ demonstrate 100% accuracy in UB strengthening HEP by third session GOAL MET Plan Plan: strengthening aerobic capacity training activity modification work simulation D/C Information Discharge Comments: This 69 year old male seen by OT for dx of CVA. pt has now met all goals in POC focus on UB strength as well as sustained aerobic capacity. pt demonstrates the ability to complete box lifting from knee level to to head level then from head level to overhead at 35# total 6 reps 3 sets overhead within hour session of OT. pt is able to sustain UB recumbent bike resistance level 5-6 for 14 min duration. pt is aware of his baseline higher bp and has bp cuff at home which he uses to monitor. d/c sentence: If there are questions or concerns regarding this patient's occupational therapy, please fell free to call me at [phone]. Thank you for the referral of this patient. Sincerely, Odalis Ruffin
--- NOTE | 2024-07-18 10:26 | HP.OT.NRP ---
Patient Information Patient Information: RAMÓN ORTIZ was seen in my office for initial evaluation on 05/09/24. The following Plan of Care was established for this patient: POC Established Initial Frequency: 1-2x /Week Initial Duration: 3 Weeks Plan: strengthening aerobic capacity training activity modification work simulation Anticipated Interventions Anticipated Interventions: A/AAROM/PROM, Strengthening, Joint Protection/Energy Conservation, Neuro Reeducation, Education re assistive Equipment, Education re Diagnosis and Home Program Last Seen Last Seen: This patient was last seen in our office 07/18/24. Pertinent comments regarding their Occupational therapy will appear below: This 69 year old male seen for OT s/p CVA. pt seen for overall UB strengthening as well as sustained aerobic capacity for return to daily functioning including heavy work IADL tasks. pt progressed to completion of sci fit bike resistance 6.7 duration 14 min. box lift knee to head level and then overhead 6 reps 3 sets at 32.5-35#. pt has met all OT goals discharge at this time. At this point I will be discontinuing this patient from occupational therapy. I would be happy to see this patient again in the future if found appropriate by the physician. Thank you! Odalis Ruffin
== END 2024-07-18 14:13 | disposition home or self-care (01) ==
LOC: OT 09:30
PROVIDERS: PCP Nurse Practitioner Family; Visit Provider Nurse Practitioner Family
DX: H53.461 Homonymous bilateral field defects, right side (principal); R26.89 Other abnormalities of gait and mobility
CPT/HCPCS: 92507; 97110; 97162; 97165; 97530